=== PATIENT | male | born 1955 | race Caucasian/White ===

== ENCOUNTER → 2016-12-08 16:24 | Outpatient (CLI) | payer BC ==
[2016-09-03 08:15] VITALS: BMI 27.8
[~2016-12-08 16:24] MED LIST: AMBIEN10 MG PO; ASPIRIN325 MG PO; BYSTOLIC10 MG PO; BYSTOLIC20 MG PO; CATAPRES0.1 MG PO; EFFIENT10 MG PO; FISH OIL 1,0001 CA1 PO; GEMFIBROZIL600 MG PO; ISOSORBIDE DINI30 MG PO; K-DUR20 MEQ PO; LIPITOR40 MG PO; NIFEDICAL30 MG/BOTT PO; PLAVIX75 MG PO; PROCARDIA XL PO; ULORIC40 MG PO; VITAMIN D50000 UNIT PO; ZAROXOLYN5 MG PO; ZYLOPRIM100 MG PO
[2016-12-08 17:02] LABS: ANION GAP 10.7 mmol/L (8-16); CALCIUM 9.9 mg/dL (8.5-10.1); CARBON DIOXIDE 34.8 mmol/L (21.0-32.0); CREATININE - SERUM 1.9 mg/dL (0.6-1.3); POTASSIUM - SERUM 3.5 mmol/L (3.5-5.1)
== END | disposition home or self-care (01) ==
LOC: D.LABREF 16:24
PROVIDERS: Internal Medicine Cardiovascular Disease
DX: I10 Essential (primary) hypertension (principal)

== ENCOUNTER → 2017-08-02 13:01 | Outpatient (CLI) | payer BC ==
[2016-09-03 08:15] VITALS: BMI 27.8
== END | disposition home or self-care (01) ==
LOC: D.CT 13:01
DX: I71.4 Abdominal aortic aneurysm, without rupture (principal)

== ENCOUNTER → 2017-08-20 07:39 | Outpatient (CLI) | payer BC ==
[2016-09-03 08:15] VITALS: BMI 27.8
== END | disposition home or self-care (01) ==
LOC: D.RAD 08-11 08:00
DX: Z53.9 Procedure and treatment not carried out, unspecified reason (principal); Z86.010 Personal history of colon polyps

== ENCOUNTER 2018-01-02 20:49 | Emergency (ER) | payer OTHER ==
[2016-09-03 08:15] VITALS: BMI 27.8
[2018-01-02 21:31] LABS: BASOPHILS 0.2 % (0-2); EOSINOPHILS 4.9 % (0-7); HEMATOCRIT 40.1 % (42.0-54.0); HEMOGLOBIN 13.8 g/dL (13.5-17.5); IMMATURE GRANULOCYTES 0.2 % (0-5); MCH 34.8 pg (26.0-34.0); MCHC 34.4 g/dL (31.0-37.0); MCV 101.3 fL (80.0-100.0); MEAN PLATELET VOLUME 9.1 fL (7.4-10.4); MONOCYTES 7.2 % (2-11); NEUTROPHILS 60.5 % (40-80); PLATELET COUNT 286 10x3/uL (130-400); RBC 3.96 10x6/uL (4.20-6.10); RDW 13.2 % (11.5-14.5); WBC 9.2 10x3/uL (4.8-10.8)
[2018-01-02 21:48] LABS: ALBUMIN 3.9 g/dL (3.4-5.0); ALKALINE PHOSPHATASE 108 U/L (46-116); ALT (SGPT) 19 U/L (10-68); BILIRUBIN - TOTAL 0.33 mg/dL (0.2-1.3); CALC OSMOLALITY 279 mosm/kg (275-300); CALCIUM 10.5 mg/dL (8.5-10.1); CHLORIDE - SERUM 96 mmol/L (98-107); GLUCOSE 93 mg/dL (74-106); POTASSIUM - SERUM 3.2 mmol/L (3.5-5.1); PROTEIN - SERUM 8.4 g/dL (6.4-8.2); SODIUM 137 mmol/L (136-145); UREA NITROGEN 29 mg/dL (7-18); eGFR NON AFRICAN AMERICAN 36 mL/min (90-120)
[2018-01-02 22:01] LABS: CHOL - HDL RATIO 5.8 ratio (2.3-4.9); CHOLESTEROL, TOTAL 213 mg/dL (0-200); CKMB 5.2 U/L (0.0-3.6); CREATINE KINASE 581 UL (21-232); HDL CHOLESTEROL 37 mg/dL (32-96); LDL CHOLESTEROL 142 mg/dL (0-100); LDL-HDL RATIO 3.8 ratio (1.5-3.5); PRO BNP 290 pg/mL (0-125); TRIGLYCERIDE 172 mg/dL (30-200); TROPONIN-I < 0.017 ng/mL (0.000-0.060)
== END 2018-01-03 00:02 | disposition home or self-care (01) ==
LOC: D.ER 20:49
PROVIDERS: Family Medicine
DX: R07.89 Other chest pain (principal); E87.6 Hypokalemia; I25.10 Atherosclerotic heart disease of native coronary artery without angina pectoris; I12.9 Hypertensive chronic kidney disease with stage 1 through stage 4 chronic kidney disease, or unspecified chronic kidney disease; N18.9 Chronic kidney disease, unspecified; F17.200 Nicotine dependence, unspecified, uncomplicated; R00.1 Bradycardia, unspecified

== ENCOUNTER 2018-06-23 06:37 | Outpatient (CLI) | payer OTHER ==
[~2018-06-23] VITALS: Ht 165.1 cm; Wt 78.3 kg
--- NOTE | ~2018-06-23 | OP ---
PATIENT NAME: ADELAIDE RICHMOND MEDICAL RECORD: [id number] :53 LOCATION:D.M2 D.2116 ADMISSION DATE:06/23/18 SURGEON: JEANINE RITTER MD DATE OF OPERATION: 06/24/2018 PROCEDURES: 1. PTCA and stent of vein graft to RCA. 2. Selective coronary and vein graft angiography. INDICATION: Angina and coronary artery disease. PROCEDURE IN DETAIL: After informed consent was obtained and after detailed explanation of risks, benefits as well as alternative therapies, the patient elected to proceed with angiogram and angioplasty. The right femoral area was prepped and draped in normal sterile fashion. Right femoral artery was cannulated via modified Seldinger technique with placement of 6-Japanese sheath. All catheters exchanged through this sheath. FINDINGS: The right coronary vein graft has a large clot burden with no discernible flow through the distal vessel. We were able to place a 4.5 x 26-mm Chau stent there. Result was 0% residual stenosis. OVERALL IMPRESSION: Successful PTCA and stent of the vein graft to the right coronary artery going from 85% to 90% initial stenosis to 0% residual stenosis. TRANSINT:[id number] Voice Confirmation ID: [id number] DOCUMENT ID: [id number] JEANINE RITTER MD at 1843 CC: [id number] DICTATION DATE: 06/24/18922 CHILDCARE PROVIDER: 06/24/18 1008 DIS IN 06/24/18 [place] [id number] [place] [id number]
--- NOTE | ~2018-06-23 | DS ---
PATIENT:ADELAIDE RICHMOND :53 MEDICAL RECORD: [id number] DISCHARGE SUMMARY ADMISSION DATE: 06/23/18 DISCHARGE DATE: 06/24/18 DISCHARGE DIAGNOSES: 1. Unstable angina. 2. Coronary artery disease. 3. Percutaneous transluminal coronary angioplasty stent vein graft to right coronary artery this admission. 4. Hyperlipidemia. 5. Hypertension. HISTORY: This is a gentleman who presents with unstable anginal symptomatology, found to have significant disease of the vein graft to the RCA as well as the LAD past the patent JAMES, underwent successful PTCA stent of the vein graft to the RCA. He was discharged home with the addition of aspirin and Plavix to his medical regimen. He will follow up for PTCA stent of the LAD through the JAMES in the near future. TRANSINT:[id number] Voice Confirmation ID: [id number] DOCUMENT ID: [id number] JEANINE RITTER MD at 1843 CC: [id number] DICTATION DATE: 06/24/18923 BLOOD BANK LABORATORY PROFESSIONAL: 06/24/18 1033 DIS IN 06/24/18 [facility] [address] [place] [address]
--- NOTE | ~2018-06-23 | HEMODYNAMI ---
PATIENT:ADELAIDE RICHMOND MEDICAL RECORD: [id number] : 53 LOCATION:DCIARA ADMISSION DATE: 06/23/18 Generatedon:06/23/20189:50 Patient name: ADELAIDE RICHMOND Patient #: [id number] : 1955 Date of study: 06/23/2018 Page: Of Hemodynamic Procedure Report Patient Data Patient Demographics Procedure consent was obtained First Name: ADELAIDE Gender: Male Last Name: YI : 1955 [facility] Initial: IGOR Age: 63 year(s) Patient #: [id number] Race: SSN: [id number] Additional ID: [id number] Contact details Address: [address] [place] [address] [facility] State: [place] City: [place] Zip code: [address] Past Medical History History of disease Date Diagnosis Comments CAD Hypertension Allergies Allergen Reaction Date Comments Reported Other allergy 09/03/2016 prednisone, tramadol Other allergy 06/23/2018 PREDENSONE, TRAMADOL Admission Admission Data Admission Date: 06/23/2018 Admission Time: 6:37 Height (in.): 5.8 BSA: 0.33 (m2) Height (cm.): 14.73 BMI: 3761.96 (kg/m2) Weight (lbs.): 180 Weight (kg.): 81.65 Lab Results Lab Result Date: 06/23/2018 Lab Result Time: 0:00 Biochemistry Name Units Result Min Max BUN mg/dl 32 --(----)-* 7 18 Creatinine mg/dl 2.1 --(----)-* 0.6 1.3 CBC Name Units Result Min Max Hemoglobin g/dl 12.4 *-(----)-- 13.5 17.5 Procedure Procedure Types Cath Procedure Diagnostic Procedure LHC LHC w/Coronaries w/Grafts Sedation Charges Moderate Sedation up to 30 minutes Procedure Description Procedure Date Procedure Date: 06/23/2018 Procedure Start Time: 9:14 Procedure End Time: 9:49 Procedure Staff Name Function Durga Rueda MD Performing Physician Gladis Callahan RT Monitor Jerson Quiles RT Scrub Rafita Tao RN Nurse Darryn Interiano RN Nurse Procedure Data Cath Procedure Fluoroscopy Diagnostic fluoroscopy Total fluoroscopy Time: 5 time: 5 min min Diagnostic fluoroscopy Total fluoroscopy dose: 870 dose: 870 mGy mGy Contrast Material Contrast Material Type Amount (ml) Isovue 300 92 Entry Location Entry Primary Successful Side Size Upsize Upsize Entry Closure Succes sful Closure Location (Fr) 1 (Fr) 2 (Fr) Remarks Device Remarks Femoral Left 5 Fr Exoseal artery Estimated blood loss: 5 ml Diagnostic catheters Device Type Used For End Catheter Placement MULTIPACK JL 4.0 5Fr Procedure catheter DIAGNOSTIC JL 5 5Fr Procedure catheter ([id number]) DIAGNOSTIC AR 2 MOD 5 Fr Procedure catheter ([id number]) DIAGNOSTIC IM 5Fr Procedure catheter ([id number]) MULTIPACK Pigtail 5 Fr Procedure catheter Procedure Complications No complications Procedure Medications Medication Administration Route Dosage Oxygen NC 2 l/min Heparin Flush Bag added to field 2 bags (1000units/500ml NS) 0.9% NaCl I.V. 100 ml/hr Fentanyl I.V. 50 mcg Versed I.V. 1 mg Fentanyl I.V. 50 mcg Versed I.V. 1 mg Hemodynamics Rest BSA: 0.33 (m2) HGB: 12.4 (g/dl) O2 Consumption: Estimated: 36.51 (ml/min) O2 Con sumption indexed: Estimated:110.64 (ml/min/m) Heart Rate: 54 (bpm) Pressure Samples Time Site Value (mmHg) Purpose Heart Use Rate(bpm) 9:31 LV 122/1,9 Snapshot 59 9:32 AO 125/64(89) Pullback 59 9:32 LV 124/2,7 Pullback 59 Gradients Valve Time Site 1 Site 2 Mean SEP/DFP Peak To Heart Use (mmHg) (sec/min) Peak Rate (mmHg) (bpm) Aortic 9:32 LV AO 0 12 0 59 124/2,7 125/64(89) Calculations Valve P-P Mean Valve Index Valve Source Name Gradient Area Flow (cm2) Aortic 0 0 0 0 Snapshots Pre Cath Intra NCS Post Cath Vital Signs Time Heart Resp SPO2 etCO2 NIBP (mmHg) Rhythm Pain Sedation Rate (ipm) (%) (mmHg) Status Level (bpm) 9:03:40 55 17 98 0 Measuring NSR 0 (11) 10(A) , No pain 9:05:42 57 17 94 0 Time NSR 0 (11) 10(A) Exceeded , No pain 9:10:35 58 17 86 0 148/88(122) NSR 0 (11) 10(A) , No pain 9:15:20 57 17 90 36.1 146/85(111) NSR 0 (11) 10(A) , No pain 9:20:05 55 16 95 0 146/86(113) NSR 0 (11) 10(A) , No pain 9:24:47 56 17 94 28.6 140/83(112) NSR 0 (11) 10(A) , No pain 9:29:28 57 17 94 19.5 131/79(103) NSR 0 (11) 10(A) , No pain 9:34:09 57 17 96 18 137/82(112) NSR 0 (11) 10(A) , No pain 9:38:54 54 16 96 12.8 141/79(105) NSR 0 (11) 10(A) , No pain 9:43:36 68 17 95 28.6 142/92(115) NSR 0 (11) 10(A) , No pain 9:48:17 57 16 96 24.8 130/81(101) NSR 0 (11) 10(A) , No pain Medications Time Medication Route Dose Verified Delivered Reason Notes Effect iveness by by 9:07:35 Oxygen NC 2 Durga Rafita Per l/min Mohit Tao RN physician 9:07:47 Heparin Flush added 2 Durag Rafita used for Bag to bags Mohit Tao cotton farmer (1000units/500ml field NS) 9:07:56 0.9% NaCl I.V. 100 Durga Rafita Per ml/hr Mohit Tao RN physician 9:12:28 Fentanyl I.V. 50 Durga Rafita for [facility] Mohit Tao RN sedation 9:12:34 Versed I.V. 1 mg Durga Rafita for Mohit Tao RN sedation 9:17:59 Fentanyl I.V. 50 Durga Rafita for [facility] Mohit Tao RN sedation 9:18:02 Versed I.V. 1 mg Durga Eller for Mohit Tao RN sedation Procedure Log Time Note 8:44:02 Jerson Quiles RT(R) sent for patient. Start room use. 8:44:03 Time tracking: Regular hours (M-F 7:00 - 5:00) 8:44:06 Plan of Care:Hemodynamics will remain stable., Cardiac rhythm will remain stable., Comfort level will be maintained., Respiratory function will remain adequate., Patient/ family verbilizes understanding of procedure., Procedure tolerated without complication., Recovers from procedure without complications.. 8:44:09 Signed procedure consent form obtained from patient. 8:45:21 H&P Date Dictated: 05/26/2018 Within 30 days and on chart., H&P Addendum completed by physician on day of procedure. (MUST COMPLETE FOR ALL OUTPATIENTS). 8:45:44 Patient allergic to Other allergyPREDENSONE, TRAMADOL 8:46:02 Patient Height : 5.8 inches 8:46:06 Patient Weight : 180 lbs 8:46:53 Lab Result : BUN 32 mg/dl 8:46:53 Lab Result : Hemoglobin 12.4 g/dl 8:46:53 Lab Result : Creatinine 2.1 mg/dl 8:54:03 Patient received from Pre/Post Procedure Room to CCL 1 Alert and oriented. Tansferred to table in Supine position. 8:54:06 Warm blankets applied, and christine hugger turned on for patient comfort. 8:54:07 Correct patient and procedure confirmed by team. 8:54:08 ECG and BP/O2 sat monitors applied to patient. 9:02:31 Vital chart was started 9:02:35 Pre-procedure instructions explained to patient. 9:02:35 Pre-op teaching completed and patient verbalized understanding. 9:02:37 Family in patients room. 9:02:39 Patient NPO since Midnight. 9:06:37 Baseline sample Acquired. 9:06:40 Rhythm: sinus bradycardia 9:06:41 Full Disclosure recording started 9:06:44 Is the patient allergic to Iodine/contrast media? No. 9:06:49 Is patient on blood thinner?No 9:07:02 Patient diabetic? No. 9:07:05 Previous problem with sedation/anesthesia? No ? 9:07:06 Snore? Yes 9:07:07 Sleep apnea? Yes 9:07:08 Deviated septum? No 9:07:09 Opens mouth fully? Yes 9:07:10 Sticks out tongue? Yes 9:07:13 Airway obstruction? Yes COPD 9:07:22 Dentures? Yes IN TIGHT 9:07:26 Pre procedure: left dorsailis pedis pulse 2+ Normal; easily identifiable; not easily obliterated 9:07:30 Patient pain scale 0/10 ?. 9:07:34 IV patent on arrival in left hand with 0.9% NaCl at KVO. 9:07:35 Oxygen 2 l/min NC was administered by Rafita Tao RN; Per physician; 9:07:36 Lab results completed and on chart. 9:07:39 Left groin area was prepped with chlora-prep and draped in sterile fashion 9:07:40 Alarms reviewed by R. N. 9:07:40 Sharps counted by scrub and verified by R.N. 9:07:41 --------ALL STOP TIME OUT------ 9:07:42 Final Timeout: patient, procedure, and site verified with staff and physician. All members of the team are in agreement. 9:07:43 Left groin site verified by team. 9:07:46 Physical assessment completed. ASA score P 2 - A patient with mild systemic disease as per Durga Rueda MD. 9:07:47 Heparin Flush Bag (1000units/500ml NS) 2 bags added to field was administered by Rafita Tao RN; used for procedure; 9:07:50 Sedation plan: IV Moderate Sedation Medication:Versed, Fentanyl 9:07:56 0.9% NaCl 100 ml/hr I.V. was administered by Rafita Tao RN; Per physician; 9:11:19 Use device set Femoral Dx 9:11:21 ACIST Syringe (35125) opened to sterile field. 9:11:22 Bag Decanter () opened to sterile field. 9:11:23 ACIST Hand Control (73598) opened to sterile field. 9:11:24 ACIST Manifold (62467) opened to sterile field. 9:11:24 Tegaderm 4 x 4 (1626W) opened to sterile field. 9:11:26 Medline Cath Pack ([id number]) opened to sterile field. 9:11:27 DIAGNOSTIC WIRE .035 260cm J wire (473058) opened to sterile field. 9:11:29 DIAGNOSTIC Multipack 5Fr catheter set ([id number]) opened to sterile field. 9:11:30 SHEATH Prelude 5Fr 0.035 ([id number]-7F-00-035) opened to sterile field. 9:11:58 Zero performed for pressure channel P1 9:12:28 Fentanyl 50 mcg I.V. was administered by Rafita Tao RN; for sedation; 9:12:34 Versed 1 mg I.V. was administered by Rafita Tao RN; for sedation; 9:14:07 Procedure started. 9:14:14 Local anesthetic to left femerol artery with Lidocaine 2% by Durga Rueda MD.INITIAL ACCESS ONLY 9:14:41 Zero performed for pressure channel P1 9:17:59 Fentanyl 50 mcg I.V. was administered by Rafita Tao RN; for sedation; 9:18:02 Versed 1 mg I.V. was administered by Rafita Tao RN; for sedation; 9:18:02 A 5 Fr sheath was inserted into the Left Femoral artery 9:19:33 A MULTIPACK JL 4.0 5Fr catheter was advanced over the wire and used for Procedure. 9:22:14 UNABLE TO CANNULATE 9:22:23 A DIAGNOSTIC JL 5 5Fr catheter ([id number]) was advanced over the wire and used for Procedure. 9:23:53 LCA angiography performed. 9:24:15 Catheter exchanged over wire. 9:24:48 A DIAGNOSTIC AR 2 MOD 5 Fr catheter ([id number]) was advanced over the wire and used for Procedure. 9:26:35 SVG to RCA angiography performed. 9:27:28 SVG to Diag angiography performed. 9:27:52 Catheter exchanged over wire. 9:28:32 A DIAGNOSTIC IM 5Fr catheter (950360V) was advanced over the wire and used for Procedure. 9:30:24 JAMES to LAD angiography performed. 9:30:35 Catheter exchanged over wire. 9:31:07 A MULTIPACK Pigtail 5 Fr catheter was advanced over the wire and used for Procedure. 9:31:37 LV gram done using [place] 9:31:42 Injector settings: Ml/sec: 10, Volume: 20, 9:32:03 LV hemodynamics recorded. 9:32:19 EF : 60 % 9:43:06 Catheter removed. 9:43:09 EXOSEAL 5Fr (EX500) opened to sterile field. 9:44:01 Sheath removed intact; hemostasis achieved with Exoseal to the Left Femoral artery. 9:45:07 Procedure ended.(Physican Out) 9:45:39 Fluoroscopy time 05.00 minutes. 9:46:18 Fluoroscopy dose: 870 mGy 9:46:18 Flurop Dose total: 870 9:47:09 Contrast amount:Isovue 300 92ml. 9:47:11 Sharps counted by scrub and verified by R.N. 9:47:14 Post-op/insertion site Left Femoral artery dressed using a 4 x 4 and Tegaderm. 9:47:19 Post left femerol artery:stable, soft, clean and dry 9:47:23 Post-procedure physical assessment completed. ASA score P 2 - A patient with mild systemic disease as per Durga Rueda MD. 9:47:28 Post procedure rhythm: sinus bradycardia 9:47:54 Estimated blood loss: 5 ml 9:47:58 Post procedure instruction explained to patient.Patient verbalizes understanding. 9:47:59 Patient needs reinforcement of post procedure teaching. 9:48:22 Procedure type changed to Cath procedure, Diagnostic procedure, LHC, LHC w/Coronaries w/Grafts, Sedation Charges, Moderate Sedation up to 30 minutes 9:49:06 Procedure and supply charges have been captured, reviewed, submitted and are correct. 9:49:08 Procedure Complication : No complications 9:49:10 Vital chart was stopped 9:49:10 See physician's report for complete and final results. 9:49:12 Report given to Pre/Post Procedure Room. 9:49:15 Patient transfered to Pre/Post Procedure Room with Bed. 9:49:16 Procedure ended. 9:49:16 Full Disclosure recording stopped 9:49:19 End room use (Document Last) Device Usage Item Name Manufacture Quantity Catalog Number Hospital Part Current M inimal Lot# / Charge Number Stock Stock Serial# Code ACIST Syringe Acist 1 01518 714967 615989 709916 2 0 (74951) [employer] Bag Decanter Microtek 1 069302 24936 574068 5 (2002S) Medical Inc. ACIST Hand Acist 1 57588 073934 857093 696944 5 Control (64262) [employer] Inc ACIST Manifold Acist 1 74148 258157 228794 146673 5 (98070) [employer] Inc Tegaderm 4 x 4 3M 1 1626W 354932 754508 950849 5 (1626W) Medline Cath Cardinal 1 [id number] 854769 16647 961286 5 Invested.in Health ([id number]) DIAGNOSTIC WIRE [facility] 1 778715 192050 004549 435566 3 0 .035 260cm J wire (240046) DIAGNOSTIC Cardinal 1 [id number] 168830 24994 415954 3 0 Multipack 5Fr Health catheter set (ON7195) SHEATH Prelude Merit 1 [id number]-[id number] 585228 263390 980657 5 5Fr 0.035 Medical ([id number]-5M-97-035) MULTIPACK JL Cardinal 1 [id number] 5 4.0 5Fr Health catheter DIAGNOSTIC JL 5 Cardinal 1 [id number] 330067 982983 501973 5 5Fr catheter Health (239545G) DIAGNOSTIC AR 2 Cardinal 1 [id number] 995681 703678 496007 2 0 MOD 5 Fr Health catheter ([id number]) DIAGNOSTIC IM Cardinal 1 [id number] 017669 070929 425525 5 5Fr catheter Health (260990J) MULTIPACK Cardinal 1 004116 5 Pigtail 5 Fr Health catheter EXOSEAL 5Fr Cardinal 1 EX500 593942 751721 428749 1 0 (EX500) Health Signature Audit [place] Stage Time Signature Unsigned Intra-Procedure 06/23/2018 Gladis Callahan 9:50:27 AM RT(R) Signatures Monitor : Gladis Callahan Signature : RT Date : Time : [facility] [address] [facility] [place] [address]
--- NOTE | ~2018-06-23 | HEMODYNAMI ---
PATIENT:ADELAIDE RICHMOND MEDICAL RECORD: [id number] : 53 LOCATION:[facility] D.2116 ADMISSION DATE: 06/23/18 Generatedon:06/24/20189:24 Patient name: ADELAIDE RICHMOND Patient #: [id number] : 1955 Date of study: 06/24/2018 Page: Of Hemodynamic Procedure Report Patient Data Patient Demographics Procedure consent was obtained First Name: ADELAIDE Gender: Male Last Name: YI : 1955 [facility] Initial: IGOR Age: 63 year(s) Patient #: [id number] Race: SSN: [id number] Additional ID: [id number] Contact details Address: [address] [place] [address] [facility] State: [place] City: [place] Zip code: [facility] Past Medical History History of disease Date Diagnosis Comments CAD Hypertension Allergies Allergen Reaction Date Comments Reported Other allergy 09/03/2016 prednisone, tramadol Other allergy 06/23/2018 PREDENSONE, TRAMADOL Other allergy 06/24/2018 TRAMADOL, PREDENISONE Admission Admission Data Admission Date: 06/23/2018 Admission Time: 12:19 Room #: [facility] Height (in.): 5.8 BSA: 0.33 (m2) Height (cm.): 14.73 BMI: 3761.96 (kg/m2) Weight (lbs.): 180 Weight (kg.): 81.65 Lab Results Lab Result Date: 06/23/2018 Lab Result Time: 0:00 Biochemistry Name Units Result Min Max BUN mg/dl 32 --(----)-* 7 18 Creatinine mg/dl 2.1 --(----)-* 0.6 1.3 CBC Name Units Result Min Max Hemoglobin g/dl 12.4 *-(----)-- 13.5 17.5 Procedure Procedure Types Cath Procedure Diagnostic Procedure PCI Procedure AMI/SVG/CORPORATE TAX PREPARER PTCA or Stent SVG-BMS/ELBA Initial Procedure Description Procedure Date Procedure Date: 06/24/2018 Procedure Start Time: 9:04 Procedure End Time: 9:21 Procedure Staff Name Function Art Wilkins MD Performing Physician Liat Diehl RT Monitor Sowmya Mcdermott RT Scrub Darryn Interiano RN Nurse Rafita Tao RN Nurse Jerson Quiles RT Spring Tester Procedure Data Cath Procedure Fluoroscopy Diagnostic fluoroscopy Total fluoroscopy Time: 5.2 time: 5.2 min min Diagnostic fluoroscopy Total fluoroscopy dose: 404 dose: 404 mGy mGy Contrast Material Contrast Material Type Amount (ml) Isovue 300 49 Entry Location Entry Primary Successful Side Size Upsize Upsize Entry Closure Succes sful Closure Location (Fr) 1 (Fr) 2 (Fr) Remarks Device Remarks Femoral Right 6 Fr Exoseal artery Short Estimated blood loss: 10 ml Procedure Complications No complications Procedure Medications Medication Administration Route Dosage Oxygen etCO2 Nasal cannula 2 l/min Lidocaine 2% added to field 20 Heparin Flush Bag added to field 2 bags (1000units/500ml NS) 0.9% NaCl I.V. 100 ml/hr Integrilin Drip I.V. drip 6.5 ml/hr (75mg/100ml) Versed I.V. 1 mg Fentanyl I.V. 100 mcg Versed I.V. 1 mg Fentanyl I.V. 50 mcg Heparin Bolus I.V. 5000 units Cardene I.C. 300 mcg Fentanyl I.V. 50 mcg Plavix P.O. 75 mg Hemodynamics Rest BSA: 0.33 (m2) O2 Consumption: Estimated: 44.88 (ml/min) O2 Consumption indexed: Estimated:136 (ml/min/m) Pre Cath Intra NCS Post Cath Vital Signs Time Heart Resp SPO2 etCO2 NIBP (mmHg) Rhythm Pain Sedation Rate (ipm) (%) (mmHg) Status Level (bpm) 8:50:43 51 14 97 36 188/100(159) NSR 0 (11) 10(A) , No pain 8:55:03 50 10 96 29.2 175/104(148) NSR 0 (11) 10(A) , No pain 8:59:21 52 17 94 37.5 164/95(138) NSR 0 (11) 10(A) , No pain 9:03:37 51 17 94 32.3 151/91(106) NSR 0 (11) 10(A) , No pain 9:07:49 53 21 94 30.8 148/90(107) NSR 0 (11) 9(A) , No pain 9:12:01 53 13 93 33 132/86(106) NSR 0 (11) 9(A) , No pain 9:16:09 53 14 94 26.3 138/77(107) NSR 0 (11) 9(A) , No pain 9:20:15 53 13 93 29.2 133/92(106) NSR 0 (11) 10(A) , No pain Medications Time Medication Route Dose Verified Delivered Reason Notes Effectiveness by by 8:49:55 Oxygen etCO2 2 Art Cates used for Nasal l/min Claudette Interiano RN procedure cannula 8:50:01 Lidocaine 2% added 20ml Art Cordova for local to vial Claudette Wilkins MD anesthetic field 8:50:07 Heparin Flush added 2 Art Cordova used for Bag to bags Claudette Wilkins MD procedure (1000units/500ml field NS) 8:50:15 0.9% NaCl I.V. 100 Art Cates Per physician ml/hr Claudette Interiano RN 8:53:00 Integrilin Drip I.V. 6.5 Art Cates renal dose (75mg/100ml) drip ml/hr Claudette Interiano RN 9:04:00 Versed I.V. 1 mg Art Cates for sedation Claudette Interiano RN 9:04:05 Fentanyl I.V. 100 Art Cates for sedation mcg Claudette Interiano RN 9:05:07 Versed I.V. 1 mg Art Cates for sedation Claudette Interiano RN 9:05:10 Fentanyl I.V. 50 Art Cates for sedation mcg Claudette Interiano RN 9:05:41 Heparin Bolus I.V. 5000 Art Cates for verifi ed units Claudette Interiano RN anticoagulation with dr wilkins 9:12:49 Cardene I.C. 300 Art Cordova for mcg Claudette durant 9:15:56 Fentanyl I.V. 50 Art Cordoav for sedation mcg Claudette Wilkins MD 9:22:32 Plavix P.O. 75 mg Art Cates for Tauth MD Interiano RN antiplatelet therapy Procedure Log Time Note 8:24:42 Patient Height : 5.8 inches 8:24:42 Patient Weight : 180 lbs 8:25:01 Jerson Quiles RT(R) sent for patient. Start room use. 8:25:02 Time tracking: Regular hours (M-F 7:00 - 5:00) 8:25:07 Plan of Care:Hemodynamics will remain stable., Cardiac rhythm will remain stable., Comfort level will be maintained., Respiratory function will remain adequate., Patient/ family verbilizes understanding of procedure., Procedure tolerated without complication., Recovers from procedure without complications.. 8:44:25 Patient received from Med II to CCL 2 Alert and oriented. Tansferred to table in Supine position. 8:44:26 Warm blankets applied, and christine hugger turned on for patient comfort. 8:44:26 Correct patient and procedure confirmed by team. 8:44:37 Signed procedure consent form obtained from patient. 8:44:38 ECG and BP/O2 sat monitors applied to patient. 8:45:47 Full Disclosure recording started 8:46:30 H&P Date Dictated: 06/23/2018 Within 30 days and on chart.. 8:46:31 Pre-procedure instructions explained to patient. 8:46:32 Pre-op teaching completed and patient verbalized understanding. 8:46:33 Family in patients room. 8:46:34 Patient NPO since Midnight. 8:46:56 Patient allergic to Other allergyTRAMADOL, PREDENISONE 8:46:58 Is the patient allergic to Iodine/contrast media? No. 8:47:10 Is patient on blood thinner?Yes 8:47:13 ACC The patient was administered the following blood thiners within the last 24 hours: ACCPlavix 8:47:23 Patient diabetic? No. 8:47:27 Previous problem with sedation/anesthesia? No ? 8:47:28 Snore? Yes 8:47:29 Sleep apnea? Yes 8:47:31 Deviated septum? No 8:47:35 Opens mouth fully? Yes 8:47:35 Sticks out tongue? Yes 8:47:39 Airway obstruction? Yes COPD 8:47:44 Dentures? Yes IN TIGHT 8:47:57 Pre procedure: left dorsailis pedis pulse 2+ Normal; easily identifiable; not easily obliterated 8:48:01 Patient pain scale 0/10 ?. 8:48:10 IV patent on arrival in left hand with 0.9% NaCl at KVO. 8:48:37 Lab results completed and on chart. 8:48:40 Left groin area was prepped with chlora-prep and draped in sterile fashion 8:48:42 Alarms reviewed by R. N. 8:48:43 Sharps counted by scrub and verified by R.N. 8:49:26 Use device set CATH PACK 8:49:27 ACIST Syringe (16137) opened to sterile field. 8:49:28 ACIST Hand Control (14242) opened to sterile field. 8:49:28 ACIST Manifold (06432) opened to sterile field. 8:49:29 Medline Cath Pack ([id number]) opened to sterile field. 8:49:29 Bag Decanter (2002) opened to sterile field. 8:49:30 DIAGNOSTIC WIRE .035 260cm J wire (675365) opened to sterile field. 8:49:35 Vital chart was started 8:49:55 Oxygen 2 l/min etCO2 Nasal cannula was administered by Darryn Interiano RN; used for procedure; 8:50:01 Lidocaine 2% 20ml vial added to field was administered by Art Wilkins MD; for local anesthetic; 8:50:07 Heparin Flush Bag (1000units/500ml NS) 2 bags added to field was administered by Art Wilkins MD; used for procedure; 8:50:15 0.9% NaCl 100 ml/hr I.V. was administered by Darryn Interiano RN; Per physician; 8:50:26 SHEATH 6FR [place] (PCR780) opened to sterile field. 8:50:27 INFLATOR Merit BasixCompak (MV4643) opened to sterile field. 8:53:00 Integrilin Drip (75mg/100ml) 6.5 ml/hr I.V. drip was administered by Darryn Interiano RN; renal dose; 8:54:31 Physician paged 8:58:30 Zero performed for pressure channel P1 9:03:29 Physician arrived 9:03:30 --------ALL STOP TIME OUT------ 9:03:30 Final Timeout: patient, procedure, and site verified with staff and physician. All members of the team are in agreement. 9:03:32 Left groin site verified by team. 9:03:43 Physical assessment completed. ASA score P 2 - A patient with mild systemic disease as per Art Wilkins MD. 9:03:47 Sedation plan: IV Moderate Sedation Medication:Versed, Fentanyl 9:03:59 Use device set Femoral Dx 9:04:00 Versed 1 mg I.V. was administered by Darryn Interiano RN; for sedation; 9:04:04 Procedure started. 9:04:05 Fentanyl 100 mcg I.V. was administered by Darryn Interiano RN; for sedation; 9:04:33 INFLATOR Merit BasixCompak (JG3061) opened to sterile field. 9:04:34 ACIST Syringe (04144) opened to sterile field. 9:04:34 Bag Decanter (2002S) opened to sterile field. 9:04:35 Medline Cath Pack ([id number]) opened to sterile field. 9:04:37 DIAGNOSTIC WIRE .035 260cm J wire (444736) opened to sterile field. 9:04:38 ACIST Hand Control (19016) opened to sterile field. 9:04:38 ACIST Manifold (26843) opened to sterile field. 9:04:41 Tegaderm 4 x 4 (1626W) opened to sterile field. 9:04:46 Local anesthetic to left femerol artery with Lidocaine 2% by Art Wilkins MD.INITIAL ACCESS ONLY 9:04:58 A 6 Fr Short sheath was inserted into the Right Femoral artery 9:05:07 Versed 1 mg I.V. was administered by Darryn Interiano RN; for sedation; 9:05:10 Fentanyl 50 mcg I.V. was administered by Darryn Interiano RN; for sedation; 9:05:41 Heparin Bolus 5000 units I.V. was administered by Darryn Interiano RN; for anticoagulation; verified with dr wilkins 9:06:05 GUIDE 6FR MB 1 catheter (LA6MB1) opened to sterile field. 9:06:06 CHOICE PT Floppy Straight 300cm guide wire ([id number]) opened to sterile field. 9:06:21 6 Fr MB1 guide catheter was inserted over the wire 9:09:38 Wire advanced across lesion. 9:12:49 Cardene 300 mcg I.C. was administered by Art Wilkins MD; for vasodilation; 9:13:23 Place stent Inflation Number: 1 A STAR RX 4.5 x 26 stent ([id number]) was prepped and advanced across the Aorta Right -> R PDA. The stent was deployed at 11 TIGIST for 0:05 (min:sec). 9:13:59 Stent catheter was removed intact over wire. 9:15:45 Wire removed. 9:15:56 Fentanyl 50 mcg I.V. was administered by Art Wilkins MD; for sedation; 9:18:09 Inflate balloon Inflation number: 2 A EMERGE OTW 2.5 x 15 balloon ([id number]) was prepped and advanced across the Aorta Right -> R PDA, then inflated to 11 TIGIST for 0:08 (min:sec). 9:18:21 EXOSEAL 6Fr (EX600) opened to sterile field. 9:18:25 Balloon removed over the wire. 9:18:26 Wire removed. 9:18:27 Guide catheter removed. 9:19:07 Sheath removed intact; hemostasis achieved with Exoseal to the Right Femoral artery. 9:19:12 Procedure ended.(Physican Out) 9:19:25 Fluoroscopy time 05.20 minutes. 9:19:31 Flurop Dose total: 404 9:19:31 Fluoroscopy dose: 404 mGy 9:19:51 Contrast amount:Isovue 300 49ml. 9:19:53 Sharps counted by scrub and verified by R.N. 9:19:55 Insertion/operative site no bleeding no hematoma. 9:20:04 Post left femerol artery:stable 9:20:13 Post Procedure Pulses reassessed and unchanged 9:20:16 Post-procedure physical assessment completed. ASA score P 2 - A patient with mild systemic disease as per Art Wilkins MD. 9:20:19 Post procedure rhythm: unchanged. 9:20:21 Estimated blood loss: 10 ml 9:20:23 Post procedure instruction explained to patient.Patient verbalizes understanding. 9:20:46 Procedure type changed to Cath procedure, Diagnostic procedure, PCI procedure, AMI/SVG/CORPORATE TAX PREPARER PTCA or Stent, SVG-BMS/ELBA Initial 9:20:48 Procedure and supply charges have been captured, reviewed, submitted and are correct. 9:21:37 Procedure Complication : No complications 9:21:40 Vital chart was stopped 9:21:41 See physician's report for complete and final results. 9:21:42 Report given to Pre/Post Procedure Room. 9:21:46 Patient transfered to Pre/Post Procedure Room with Stretcher. 9:21:48 Procedure ended. 9:21:48 Full Disclosure recording stopped 9:21:52 End room use (Document Last) 9:22:32 Plavix 75 mg P.O. was administered by Darryn Interiano RN; for antiplatelet therapy; 9:23:56 ACC-PCI Only Patient was given prescriptions, or instructed by Art Wilkins MD to start/continue the following medications upon discharge: Plavix Intervention Summary Intervention Notes Time ActionType Lesion and Equipment Used Action# Pressure Duration Attributes 9:13:23 Place stent Aorta Right STAR RX 4.5 x 1 11 00:05 -> R PDA 26 stent ([id number]) 9:18:09 Inflate Aorta Right EMERGE OTW 2.5 2 11 00:08 balloon -> R PDA x 15 balloon ([id number]) Device Usage Item Name Manufacture Quantity Catalog Number Hospital Part Current Minimal Lot# / Charge Number Stock Stock Serial# Code ACIST Syringe Acist 2 74044 015889 650587 407126 20 (87779) Medical Systems Inc ACIST Hand Acist 2 12056 312809 810207 828869 5 Control Medical (62608) Systems Inc ACIST Manifold Acist 2 78211 381092 722056 726569 5 (55265) Medical Systems Inc Medline Cath Cardinal 2 [id number] 455505 93050 474066 5 [facility] ([id number]) Bag Decanter Microtek 2 2001S 394570 50049 140827 5 (2001S) Medical Inc. DIAGNOSTIC [place] 2 859744 372287 233204 890266 30 WIRE .035 260cm J wire (156808) SHEATH 6FR Terumo 1 DIW001 284362 654362 724827 40 [place] (QRL074) INFLATOR Merit Merit 2 SH0412 048639 596446 852289 [facility] ([id number]) Tegaderm 4 x 4 3M 1 1626W 694817 457992 989394 5 (1626W) GUIDE 6FR MB 1 Medtronic 1 LA6MB1 170286 70774 053945 1 catheter (LA6MB1) CHOICE PT [place] 1 [id number] 230549 757888 984419 5 Language [employer]istics Straight 300cm guide wire ([id number]) STAR RX 4.5 x Medtronic 1 [id number] 852278 2014103 093081 5 [id number] 26 stent ([id number]) EMERGE OTW 2.5 [place] 1 [id number] 381530 456293 854890 5 [id number] x 15 balloon Scientific ([id number]) EXOSEAL 6Fr Cardinal 1 EX600 328796 291684 229469 10 (EX600) Health Signature Audit Chama Stage Time Signature Unsigned Intra-Procedure 06/24/2018 Liat Diehl 9:24:12 AM RT(R) Signatures Monitor : Liat Diehl Signature : RT Date : Time : [id number] [place] [address]
[2018-06-23] MEDS ORDERED: VITAMIN D250000 UNIT PO (07:01)
[2018-06-23] MEDS ORDERED: FEXOFENADINE HC60 MG PO (07:02)
[2018-06-23] MEDS ORDERED: AMBIEN5 MG PO (07:02)
[2018-06-23] MEDS ORDERED: GEMFIBROZIL600 MG PO (07:03)
[2018-06-23] MEDS ORDERED: NIFEDIPINE ER60 MG PO (07:04)
[2018-06-23] MEDS ORDERED: PROTONIX40 MG PO (07:04)
[2018-06-23] MEDS ORDERED: SYMBICORT 16010.2 GM INH (07:05)
[2018-06-23 07:15] VITALS: BP 158/82; BMI 30.5
[2018-06-23 07:18] LABS: BASOPHILS 0.2 % (0-2); EOSINOPHILS 5.1 % (0-7); HEMATOCRIT 35.4 % (42.0-54.0); HEMOGLOBIN 12.4 g/dL (13.5-17.5); IMMATURE GRANULOCYTES 0.3 % (0-5); LYMPHOCYTES 19.4 % (15-50); MCH 34.5 pg (26.0-34.0); MCV 98.6 fL (80.0-100.0); MEAN PLATELET VOLUME 9.1 fL (7.4-10.4); MONOCYTES 6.1 % (2-11); NEUTROPHILS 68.9 % (40-80); PLATELET COUNT 310 10x3/uL (130-400); RBC 3.59 10x6/uL (4.20-6.10); RDW 12.9 % (11.5-14.5); WBC 9.3 10x3/uL (4.8-10.8)
[2018-06-23 07:26] LABS: ANION GAP 12.5 mmol/L (8-16); CALCIUM 9.5 mg/dL (8.5-10.1); CARBON DIOXIDE 29.2 mmol/L (21.0-32.0); CREATININE - SERUM 2.1 mg/dL (0.6-1.3); POTASSIUM - SERUM 3.7 mmol/L (3.5-5.1)
[2018-06-23 15:40] VITALS: BP 142/76; Ht 165.1 cm; Wt 78.3 kg
[2018-06-23 20:40] VITALS: BP 128/74
[2018-06-24 00:05] VITALS: BP 142/81
[2018-06-24 04:52] VITALS: BP 162/94
[2018-06-24 07:05] LABS: ANION GAP 10.7 mmol/L (8-16); CALCIUM 8.8 mg/dL (8.5-10.1); CARBON DIOXIDE 31.5 mmol/L (21.0-32.0); POTASSIUM - SERUM 3.2 mmol/L (3.5-5.1)
[2018-06-24 08:13] VITALS: BP 139/85
[2018-06-24 12:46] VITALS: BP 142/81
== END 2018-06-24 15:27 | disposition home or self-care (01) ==
LOC: OBSVTIME → D.CATH 06:37 → D.M2 12:19 → D.CATH 12:19 → OBSVTIME 12:19 → D.M2 12:19 → D.CATH 06-24 15:27 → D.M2 06-24 15:27
PROVIDERS: Internal Medicine Cardiovascular Disease
DX: I25.110 Atherosclerotic heart disease of native coronary artery with unstable angina pectoris (principal); Z95.1 Presence of aortocoronary bypass graft; E78.5 Hyperlipidemia, unspecified; I10 Essential (primary) hypertension

== ENCOUNTER 2018-11-05 16:36 | Observation (INO) | payer OTHER ==
[~2018-11-05] VITALS: Ht 165.1 cm; Wt 83.2 kg
--- NOTE | ~2018-11-05 | OP ---
PATIENT NAME: ADELAIDE RICHMOND MEDICAL RECORD: [id number] :53 LOCATION:D.M2 D.2 ADMISSION DATE:11/05/18 SURGEON: JIM OLEA MD DATE OF OPERATION: 11/06/2018 PROCEDURES: Left heart catheterization, selective coronary angiography, aortogram, JAMES injection, saphenous graft, right femoral artery approach. CATHETERS: A 5-Setswana sheath, 5/4 left and right Pedro, 5/4 pig. The procedure was well tolerated. The patient was returned to [facility]. Sheath was removed. ExoSeal device was placed. FINDINGS: Left ventriculography in 30-degree [place] view; normal wall motion and normal systolic function. AORTIC ROOT: Aortogram was performed. Locatin of bypass graft: This shows saphenous vein graft to the diagonal ramus system filling. CORONARY ANATOMY: LEFT MAIN: Left main is diffusely diseased, fills with a LAD for a short period of time, seen via competitive flow. CIRCUMFLEX: Circumflex fills for a period of time and is proximally occluded. RIGHT CORONARY: Proximally occluded, fills via left to right collaterals to the JAMES graft. Saphenous vein graft to the right is totally occluded at its origin. JAMES to LAD is widely patent at the apex and note of Dr. Rueda's previous angiography report showed severe distal disease at the apex, not amenable to transcatheter ablation. Saphenous vein graft to the diagonal ramus system shows diffuse disease after the anastomotic site. IMPRESSION: Severe distal disease, not amenable to percutaneous intervention; for medical management. 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
--- NOTE | ~2018-11-05 | HEMODYNAMI ---
PATIENT:ADELAIDE RICHMOND MEDICAL RECORD: [id number] : 53 [id number] ADMISSION DATE: 11/05/18 Generatedon:11/06/201812:34 Patient name: ADELAIDE RICHMOND Patient #: [id number] : 1955 Date of study: 11/06/2018 Page: Of Hemodynamic Procedure Report Patient Data Patient Demographics Procedure consent was obtained First Name: ADELAIDE Gender: Male Last Name: YI : 1955 [facility] Initial: IGOR Age: 63 year(s) Patient #: [id number] Race: SSN: [id number] Additional ID: [id number] Contact details [address]: [address] [place] [address] [facility] State: [place] City: [place] Zip code: [address] Past Medical History History of disease Date Diagnosis Comments CAD Hypertension Allergies Allergen Reaction Date Comments Reported Other allergy 09/03/2016 prednisone, tramadol Other allergy 06/23/2018 PREDENSONE, TRAMADOL Other allergy 06/24/2018 TRAMADOL, PREDENISONE Other allergy 11/06/2018 prednisone, tramadol, hcl Admission Admission Data Admission Date: 11/05/2018 Admission Time: 17:36 Admit Source: Emergency department Room #: D.2122 Lab Results Lab Result Date: 11/05/2018 Lab Result Time: 17:00 Biochemistry Name Units Result Min Max BUN mg/dl 23 --(----)-* 7 18 Creatinine mg/dl 1.7 --(----)-* 0.6 1.3 CBC Name Units Result Min Max Hematocrit % 32.7 *-(----)-- 42 54 Hemoglobin g/dl 10.8 *-(----)-- 13.5 17.5 Procedure Procedure Types Cath Procedure Diagnostic Procedure LHC LHC w/Coronaries w/Grafts Sedation Charges Moderate Sedation up to 15 minutes Procedure Description Procedure Date Procedure Date: 11/06/2018 Procedure Start Time: 12:17 Procedure End Time: 12:34 Procedure Staff Name Function Leo Rooney MD Performing Physician Jennifer Short RT Monitor Jonathan Posadas RT Scrub Gene Abraham RN Nurse Procedure Data Cath Procedure Fluoroscopy Diagnostic fluoroscopy Total fluoroscopy Time: 5 time: 5 min min Diagnostic fluoroscopy Total fluoroscopy dose: 754 dose: 754 mGy mGy Contrast Material Contrast Material Type Amount (ml) Isovue 300 133 Entry Location Entry Primary Successful Side Size Upsize Upsize Entry Closure Succes sful Closure Location (Fr) 1 (Fr) 2 (Fr) Remarks Device Remarks Femoral Right 5 Fr Exoseal artery Estimated blood loss: 5 ml Diagnostic catheters Device Type Used For End Catheter Placement MULTIPACK JL 4.0 5Fr Left Coronary catheter Angiography DIAGNOSTIC JL 5 5Fr Left Coronary catheter ([id number]) Angiography MULTIPACK Pigtail 5 Fr LV Angiography catheter MULTIPACK Pigtail 5 Fr Aortic Root catheter Angiography MULTIPACK 3DRC 5Fr Right Coronary catheter Angiography MULTIPACK 3DRC 5Fr SVG Angiography catheter MULTIPACK 3DRC 5Fr SVG Angiography catheter MULTIPACK 3DRC 5Fr Internal mammary catheter arteriography Procedure Complications No complications Procedure Medications Medication Administration Route Dosage 0.9% NaCl I.V. 100 ml/hr Oxygen etCO2 Nasal cannula 2 l/min Heparin Flush Bag added to field 2 bags (1000units/500ml NS) Lidocaine 2% added to field 20 Versed I.V. 2 mg Fentanyl I.V. 100 mcg Versed I.V. 1 mg Versed I.V. 1 mg Hemodynamics Rest HGB: 10.8 (g/dl) Heart Rate: 56 (bpm) Pressure Samples Time Site Value (mmHg) Purpose Heart Use Rate(bpm) 12:23 LV 126/7,12 Snapshot 54 12:24 AO 117/67(87) Snapshot 55 Snapshots Pre Cath Intra NCS Post Cath Vital Signs Time Heart Resp SPO2 etCO2 NIBP (mmHg) Rhythm Pain Sedation Rate (ipm) (%) (mmHg) Status Level (bpm) 12:01:07 56 15 98 0 167/104(146) NSR 0 (11) 10(A) , No pain 12:06:24 53 15 98 0 166/95(145) NSR 0 (11) 10(A) , No pain 12:10:42 56 17 100 34.8 167/96(150) NSR 0 (11) 10(A) , No pain 12:15:06 56 12 96 0 135/75(101) NSR 0 (11) 10(A) , No pain 12:19:16 55 16 96 0 129/80(111) NSR 0 (11) 10(A) , No pain 12:23:32 55 15 96 0 131/70(102) NSR 0 (11) 10(A) , No pain 12:27:47 55 14 97 0 134/74(109) NSR 0 (11) 9(A) , No pain 12:32:02 54 19 98 33.3 141/77(118) NSR 0 (11) 9(A) , No pain Medications Time Medication Route Dose Verified Delivered Reason Notes Eff ectiveness by by 11:59:29 0.9% NaCl I.V. 100 Gene Gene Per ml/hr Jarad Ariasigan physician RN RN 11:59:41 Oxygen etCO2 2 Gene Gene Per Nasal l/min Lordeion Ariasigan physician cannula RN RN 11:59:51 Heparin Flush added 2 Gene Gene used for Bag to bags Lorigan Lorigan procedure (1000units/500ml field RN RN NS) 12:00:03 Lidocaine 2% added 20ml Gene Gene for local to vial Lorigan Lorigan anesthetic field RN RN 12:15:09 Versed I.V. 2 mg Gene Gene for Lorigan Lorigan sedation RN RN 12:15:20 Fentanyl I.V. 100 Egne Gene for mcg Lorigan Lorigan sedation RN RN 12:18:06 Versed I.V. 1 mg Gene Gene for Lorigan Lorigan sedation RN RN 12:22:45 Versed I.V. 1 mg Gene Gene for Lorigan Lorigan sedation RN manganese wheeler Log Time Note 11:34:26 Informed consent obtained and on chart 11:34:29 Admit Source: Emergency department 11:34:42 Diagnostic Cath status Elective 11:34:43 Jonathan Posadas RT(R) sent for patient. Start room use. 11:34:45 Time tracking: Call back (After hours or weekends) 11:34:48 Plan of Care:Hemodynamics will remain stable., Cardiac rhythm will remain stable., Comfort level will be maintained., Respiratory function will remain adequate., Patient/ family verbilizes understanding of procedure., Procedure tolerated without complication., Recovers from procedure without complications.. 11:35:01 H&P Date Dictated: 11/05/2018 Within 30 days and on chart.. 11:35:39 Lab Result : BUN 23 mg/dl 11:35:39 Lab Result : Hemoglobin 10.8 g/dl 11:35:39 Lab Result : Creatinine 1.7 mg/dl 11:35:39 Lab Result : Hematocrit 32.7 % 11:35:44 Lab results completed and on chart. 11:53:18 Patient received from PCU to CCL 1 Alert and oriented. Tansferred to table in Supine position. 11:53:20 Warm blankets applied, and christine hugger turned on for patient comfort. 11:53:21 Correct patient and procedure confirmed by team. 11:53:21 ECG and BP/O2 sat monitors applied to patient. 11:53:22 Full Disclosure recording started 11:59:14 Vital chart was started 11:59:29 0.9% NaCl 100 ml/hr I.V. was administered by Gene Abraham RN; Per physician; 11:59:41 Oxygen 2 l/min etCO2 Nasal cannula was administered by Gene Abraham RN; Per physician; 11:59:51 Heparin Flush Bag (1000units/500ml NS) 2 bags added to field was administered by Gene Abraham RN; used for procedure; 12:00:03 Lidocaine 2% 20ml vial added to field was administered by Gene Abraham RN; for local anesthetic; 12:01:21 Baseline sample Acquired. 12:01:24 Rhythm: sinus bradycardia 12:01:30 Pre-procedure instructions explained to patient. 12:01:31 Pre-op teaching completed and patient verbalized understanding. 12:01:33 Family in patients room. 12:01:35 Patient NPO since Midnight. 12:01:57 Patient allergic to Other allergyprednisone, tramadol, hcl 12:02:00 Is the patient allergic to Iodine/contrast media? No. 12:02:03 Is patient on blood thinner?Yes 12:02:06 ACC The patient was administered the following blood thiners within the last 24 hours: ACCPlavix 12:02:53 Patient diabetic? No. 12:02:55 Previous problem with sedation/anesthesia? No ? 12:02:56 Snore? Yes 12:02:57 Sleep apnea? Yes 12:02:59 Deviated septum? No 12:02:59 Opens mouth fully? Yes 12:03:00 Sticks out tongue? Yes 12:03:05 Airway obstruction? Yes COPD 12:03:07 Dentures? No ? 12:03:13 Pre procedure: right dorsailis pedis pulse 2+ Normal; easily identifiable; not easily obliterated 12:03:16 Pre procedure: left dorsailis pedis pulse 2+ Normal; easily identifiable; not easily obliterated 12:03:19 Patient pain scale 0/10 ?. 12:03:30 IV patent on arrival in right hand with 0.9% NaCl at [facility]. 12:03:34 Bilateral groins area was prepped with chlora-prep and draped in sterile fashion 12:03:35 Alarms reviewed by R. N. 12:03:36 Sharps counted by scrub and verified by R.N. 12:03:38 Use device set Femoral Dx 12:03:39 ACIST Syringe (70266) opened to sterile field. 12:03:39 Bag Decanter (2002S) opened to sterile field. 12:03:40 Medline Cath Pack ([id number]) opened to sterile field. 12:03:40 DIAGNOSTIC WIRE .035 260cm J wire (330413) opened to sterile field. 12:03:42 ACIST Hand Control (46804) opened to sterile field. 12:03:42 ACIST Manifold (73688) opened to sterile field. 12:03:43 DIAGNOSTIC Multipack 5Fr catheter set ([id number]) opened to sterile field. 12:03:45 Tegaderm 4 x 4 (1626W) opened to sterile field. 12:03:47 SHEATH 5FR [place] (RKR501) opened to sterile field. 12:14:10 Zero performed for pressure channel P1 12:14:14 Zero performed for pressure channel P1 12:14:21 Final Timeout: patient, procedure, and site verified with staff and physician. All members of the team are in agreement. 12:14:25 Right groin site verified by team. 12:14:28 Physical assessment completed. ASA score P 2 - A patient with mild systemic disease as per Leo Rooney MD. 12:14:32 Sedation plan: IV Moderate Sedation Medication:Versed, Fentanyl 12:15:09 Versed 2 mg I.V. was administered by Gene Abraham RN; for sedation; 12:15:20 Fentanyl 100 mcg I.V. was administered by Gene Abraham RN; for sedation; 12:16:40 Procedure started. 12:17:00 Local anesthetic to right femoral artery with Lidocaine 2% by Leo Rooney MD.INITIAL ACCESS ONLY 12:17:24 A 5 Fr sheath was inserted into the Right Femoral artery 12:18:06 Versed 1 mg I.V. was administered by Gene Abraham RN; for sedation; 12:18:23 A MULTIPACK JL 4.0 5Fr catheter was advanced over the wire and used for Left Coronary Angiography. REMOVED, UNABLE TO CANNULATE 12:20:57 A DIAGNOSTIC JL 5 5Fr catheter ([id number]) was advanced over the wire and used for Left Coronary Angiography. 12:22:10 Catheter removed. 12:22:45 Versed 1 mg I.V. was administered by Gene Abraham RN; for sedation; 12:22:52 A MULTIPACK Pigtail 5 Fr catheter was advanced over the wire and used for LV Angiography. 12:24:35 LV gram done using [place] 12:24:43 Injector settings: Ml/sec: 10, Volume: 20, 12:25:22 A MULTIPACK Pigtail 5 Fr catheter was advanced over the wire and used for Aortic Root Angiography. 12:25:24 Catheter removed. 12:26:31 A MULTIPACK 3DRC 5Fr catheter was advanced over the wire and used for Right Coronary Angiography. 12:27:02 A MULTIPACK 3DRC 5Fr catheter was advanced over the wire and used for SVG Angiography. TO RCA-OCCLUDED 12:27:45 A MULTIPACK 3DRC 5Fr catheter was advanced over the wire and used for SVG Angiography. TO CIRC 12:28:43 A MULTIPACK 3DRC 5Fr catheter was advanced over the wire and used for Internal mammary arteriography. TO LAD 12:30:15 Catheter removed. 12:30:32 Sheath removed intact; hemostasis achieved with Exoseal to the Right Femoral artery. 12:30:36 EXOSEAL 5Fr (EX500) opened to sterile field. 12:30:38 Procedure ended.(Physican Out) 12:31:11 Fluoroscopy time 05.00 minutes. 12:31:15 Flurop Dose total: 754 12:31:15 Fluoroscopy dose: 754 mGy 12:31:55 Contrast amount:Isovue 300 133ml. 12:31:57 Sharps counted by scrub and verified by R.N. 12:31:58 Insertion/operative site no bleeding no hematoma. 12:32:02 Post-op/insertion site Right Femoral artery dressed using a 4 x 4 and Tegaderm. 12:32:05 Post right femoral artery:stable, clean and dry 12:32:06 Post Procedure Pulses reassessed and unchanged 12:32:11 Post-procedure physical assessment completed. ASA score P 2 - A patient with mild systemic disease as per Leo Rooney MD. 12:32:14 Post procedure rhythm: unchanged. 12:32:16 Estimated blood loss: 5 ml 12:32:18 Post procedure instruction explained to patient.Patient verbalizes understanding. 12:32:18 Patient needs reinforcement of post procedure teaching. 12:32:35 Procedure type changed to Cath procedure, Diagnostic procedure, LHC, LHC w/Coronaries w/Grafts, Sedation Charges, Moderate Sedation up to 15 minutes 12:32:43 Procedure Complication : No complications 12:32:46 See physician's report for complete and final results. 12:33:39 Procedure and supply charges have been captured, reviewed, submitted and are correct. 12:34:08 Vital chart was stopped 12:34:11 Report given to PCU. 12:34:14 Patient transfered to PCU with Bed. 12:34:22 Procedure ended. 12:34:22 Full Disclosure recording stopped 12:34:26 End room use (Document Last) Device Usage Item Name Manufacture Quantity Catalog Hospital Part Current Minimal L ot# / Number Charge Number Stock Stock Serial# Code ACIST Acist 1 24221 405010 901498 821340 20 Syringe Medical (56043) Systems Inc Bag Microtek 1 972685 65915 584422 5 Decanter Medical Inc. () Medline Medline 1 [id number] 561936 83326 929555 5 Cath Pack ([id number]) DIAGNOSTIC [place] 1 171830 818422 352051 001140 30 WIRE .035 260cm J wire (414505) ACIST Hand Acist 1 75533 621897 573477 926173 5 Control Medical (84057) Systems Inc ACIST Acist 1 49764 697511 527377 692831 5 [facility] Medical (13511) Systems Inc DIAGNOSTIC Cardinal 1 QR0558 334686 39410 285346 30 Multipack Health 5Fr catheter set (GN6120) Tegaderm 4 3M 1 1626W 862801 119206 150338 5 x 4 (1626W) SHEATH 5FR Terumo 1 [id number] 772238 887967 791012 5 [place] (PXP305) MULTIPACK Cardinal 1 234667 5 JL 4.0 5Fr Health catheter DIAGNOSTIC Cardinal 1 [id number] 715323 315407 247858 5 JL 5 5Fr Health catheter ([id number]) MULTIPACK Cardinal 1 597983 5 Pigtail 5 Health Fr catheter MULTIPACK Cardinal 1 058309 5 3DRC 5Fr Health catheter EXOSEAL 5Fr Cardinal 1 EX500 962679 798858 302021 10 (EX500) Health Signature Audit [place] Stage Time Signature Unsigned Intra-Procedure 11/06/2018 Jennifer 12:34:35 PM Counts RT(R) Signatures Monitor : Jennifer Signature : Counts RT Date : Time : [address] [address]
--- NOTE | ~2018-11-05 | HP ---
PATIENT: ADELAIDE RICHMOND MEDICAL RECORD: [id number] ACCOUNT: [id number] LOCATION:. D.2121 : 53 ADMISSION DATE: 11/05/18 PCP: LAWANDA MAI DO HISTORY AND PHYSICAL EXAMINATION HISTORY: A 63-year-old gentleman with known history of coronary artery disease and most recently status post intervention to saphenous graft via Dr. Wilkins. He has some distal disease. He has been having elevations in his blood pressures of late, adjusting this per renal. He began having chest pressure and tightness mostly with exertion, getting approximately on Wednesday and then progressing throughout the week with rest symptomology yesterday. Enzymes are negative. ECG showed LVH, well within window for restenosis. We are asked to see him concerning his cardiovascular status. PAST MEDICAL HISTORY: Includes; 1. History of hypertension. 2. Hyperlipidemia. ALLERGIES: TRAMADOL AND PREDNISONE. MEDICATIONS: Include Plavix 75 mg p.o. daily, atorvastatin 40 mg p.o. at bedtime, losartan 25 b.i.d., clonidine 0.1 b.i.d., and Ambien 5 at bedtime. SOCIAL HISTORY: . Smokes about a pack a day. Nondrinker. No set exercise program. REVIEW OF SYSTEMS: The patient reports easy bruising but reports no swollen glands. The patient reports no fever, no night sweats, no significant weight gain, no significant weight loss. No significant exercise tolerance. The patient reports no dry eyes, no irritation, no vision change. Patient reports no difficulty hearing and no ear pain. Patient reports no frequent nose bleeds or nose and sinus problems. Patient reports on arm pain on exertion. No shortness of breath while lying down. No history of heart murmur. Patient reports no cough, no wheezing or coughing up blood. Patient reports no abdominal pain, no vomiting. Normal appetite. No diarrhea and not vomiting blood. No nausea and no constipation. Patient reports no incontinence. No difficulty urinating. No hematuria. No increased frequency. Patient reports no muscle aches. No weakness, no arthralgias, no back pain. No swelling of the extremities. Patient reports no abnormal mole, no jaundice, no rashes. Reports no loss of consciousness. No weakness and no numbness. No seizures, dizziness, or headaches. The patient reports no depression, no sleep disturbance, feeling safe in a relationship and no alcohol abuse. Patient reports on fatigue. Reports no runny nose or sinus pressure. No itching, no hives, and no frequent sneezing. PHYSICAL EXAMINATION: GENERAL: Pleasant gentleman, in no acute distress, appears stated age. VITAL SIGNS: Blood pressure 166/93. Pulse 61 and regular. HEENT: Normocephalic and atraumatic. NECK: No JVD or bruit. HEART: Regular. S4 gallop is noted. II/ systolic ejection murmur. LUNGS: Good air excursion. ABDOMEN: Soft and nontender. EXTREMITIES: Pulses 2+. No edema. HISTORY AND PHYSICAL [id number] ADELAIDE RICHMOND IMPRESSION: Acute coronary syndrome. PLAN: Plan for angiography and intervention based on above. TRANSINT:[id number] Voice Confirmation ID: [id number] DOCUMENT ID: [id number] JIM OLEA MD CC: [id number] DICTATION DATE: 11/06/18922 CREMATORIUM OPERATOR: 11/06/18 1113 ADM IN [facility] [address] [id number]
[~2018-11-05 16:36] MED LIST changes: +AMBIEN5 MG PO; +FEXOFENADINE HC60 MG PO; +NIFEDIPINE ER60 MG PO; +PROTONIX40 MG PO; +SYMBICORT 16010.2 GM INH; +VITAMIN D250000 UNIT PO
[2018-11-05 16:59] VITALS: BP 170/98
[2018-11-05 17:08] LABS: BASOPHILS 0.1 % (0-2); HEMATOCRIT 32.7 % (42.0-54.0); HEMOGLOBIN 10.8 g/dL (13.5-17.5); IMMATURE GRANULOCYTES 0.3 % (0-5); LYMPHOCYTES 17.3 % (15-50); MCH 32.8 pg (26.0-34.0); MCV 99.4 fL (80.0-100.0); MEAN PLATELET VOLUME 8.4 fL (7.4-10.4); NEUTROPHILS 73.3 % (40-80); PLATELET COUNT 252 10x3/uL (130-400); RBC 3.29 10x6/uL (4.20-6.10); RDW 14.1 % (11.5-14.5); WBC 10.2 10x3/uL (4.8-10.8)
[2018-11-05 17:37] VITALS: BP 184/106
[2018-11-05] MEDS ORDERED: DOXYCYCLINE HY100 M2 PO (17:44)
[2018-11-05] MEDS ORDERED: COZAAR25 MG PO (17:45)
[2018-11-05] MEDS ORDERED: PLAVIX75 MG PO (17:45)
[2018-11-05 17:46] VITALS: BP 144/120
[2018-11-05 17:48] VITALS: BP 157/87
[2018-11-05 17:49] LABS: ALBUMIN 2.7 g/dL (3.4-5.0); ALKALINE PHOSPHATASE 132 U/L (46-116); ALT (SGPT) 18 U/L (10-68); BILIRUBIN - TOTAL 0.37 mg/dL (0.2-1.3); CALC OSMOLALITY 276 mosm/kg (275-300); CALCIUM 8.4 mg/dL (8.5-10.1); CARBON DIOXIDE 27.6 mmol/L (21.0-32.0); CHLORIDE - SERUM 101 mmol/L (98-107); CREATININE - SERUM 1.7 mg/dL (0.6-1.3); GLUCOSE 85 mg/dL (74-106); POTASSIUM - SERUM 4.1 mmol/L (3.5-5.1); PROTEIN - SERUM 6.6 g/dL (6.4-8.2); SODIUM 137 mmol/L (136-145); UREA NITROGEN 23 mg/dL (7-18); eGFR NON AFRICAN AMERICAN 43 mL/min (90-120)
[2018-11-05 17:59] LABS: CKMB 1.6 U/L (0.0-3.6); CREATINE KINASE 82 UL (21-232); MAGNESIUM - SERUM 1.3 mg/dL (1.8-2.4); TROPONIN-I 0.024 ng/mL (0.000-0.060)
[2018-11-05 18:01] LABS: PROTIME 13.7 SECONDS (11.6-15.0)
[2018-11-05 18:02] LABS: INR 1.06 (0.85-1.17)
[2018-11-05 18:34] VITALS: BP 134/94
--- NOTE | 2018-11-05 19:00 | NUR ---
BEDSIDE REPORT FROM MAY AVILA. PT DENIES ANY NEEDS AT THIS TIME
[2018-11-05 19:30] VITALS: BP 147/87
--- NOTE | 2018-11-05 20:00 | NUR ---
PT UP TO BATHROOM ABLE TO AMBULATE INDEPENDENTLY
--- NOTE | 2018-11-05 20:19 | NUR ---
IMMEDIATE ATTEMPT TO RETURN CALL TO COY IN ER TO GET REPORT. PLACED ON HOLD, THEN TOLD SHE WOULD CALL BACK.
--- NOTE | 2018-11-05 20:27 | NUR ---
REPORT RECIEVED FROM COY IN ER. STATES PT HAS HAD ASA/IV LOPRESSOR AND NORVASC FOR ELEVATED BP AND LAST BP WAS 147/87.
--- NOTE | 2018-11-05 20:56 | NUR ---
PT ARRIVED TO ROOM 2122 FROM ER VIA WHEELCHAIR. ALERT/ORIENTED. ADMISSION ASSESSMENT INITIATED.
[2018-11-05 22:43] LABS: CKMB 1.4 U/L (0.0-3.6); CREATINE KINASE 82 UL (21-232); TROPONIN-I 0.025 ng/mL (0.000-0.060)
--- NOTE | 2018-11-05 23:40 | NUR ---
PT C/O PAIN TO HEAD/NECK. PAGE TO DR RICE AND ORDERS RECIEVED.
[2018-11-06] VITALS (7 sets, daily range): BP systolic 132–166; BP diastolic 60–93; Ht 165.1 cm; Wt 83.2 kg
--- NOTE | 2018-11-06 00:01 | NUR ---
ADMINISTERED TYLENOL. NOW PT C/O TIGHTNESS IN CHEST. EXPLAINED TO HIM THAT DR MAI WANTS HIM TO TAKE S/L NITRO FOR CHEST PRESSURE AT THIS TIME.
--- NOTE | 2018-11-06 00:28 | NUR ---
AFTER RECIEVING TYLENOL FOR HEADACHE, PT SAYING HIS STERNUM HURTS AND IT FEELS LIKE WHEN HE CAME IN TO THE HOSPITAL. ADMINISTERED NITRO 0.4MG SL X 1 AND WILL MONITOR RESPONSE. SR PER TELEMETRY. VSS. C/O FEELING BP WAS UP ,BUT IT WAS 147/64.
--- NOTE | 2018-11-06 01:02 | NUR ---
PT NOW RESTING WITH EYES CLOSED. RESPS EVEN/NONLABORED. WILL MONITOR.
[2018-11-06 06:53] LABS: CKMB 1.5 U/L (0.0-3.6); CREATINE KINASE 66 UL (21-232); TROPONIN-I 0.026 ng/mL (0.000-0.060)
[2018-11-06 09:17] LABS: BASOPHILS 0.1 % (0-2); EOSINOPHILS 3.7 % (0-7); HEMATOCRIT 30.5 % (42.0-54.0); HEMOGLOBIN 10.1 g/dL (13.5-17.5); IMMATURE GRANULOCYTES 0.3 % (0-5); LYMPHOCYTES 27.1 % (15-50); MCH 33.1 pg (26.0-34.0); MCHC 33.1 g/dL (31.0-37.0); MEAN PLATELET VOLUME 9.1 fL (7.4-10.4); MONOCYTES 8.3 % (2-11); NEUTROPHILS 60.5 % (40-80); PLATELET COUNT 288 10x3/uL (130-400); RBC 3.05 10x6/uL (4.20-6.10); RDW 14.1 % (11.5-14.5)
[2018-11-06 09:24] LABS: ANION GAP 13.4 mmol/L (8-16); CREATININE - SERUM 1.7 mg/dL (0.6-1.3); POTASSIUM - SERUM 4.4 mmol/L (3.5-5.1)
[2018-11-06 09:30] LABS: WBC 7.4 10x3/uL (4.8-10.8)
--- NOTE | 2018-11-06 10:31 | NUR ---
ALERT AND ORIENTED X4. SITTING UP IN BED. CONSENTS FOR COMMERCIAL COORDINATOR SIGNED ON CHART. SINUS RHYTHM PACED 61 ON TELEMETRY. DENIES ANY NEEDS. PRE-OP COMPLETE. CONTINUE PLAN OF CARE AND SAFETY PRECAUTIONS.
--- NOTE | 2018-11-06 12:51 | NUR ---
RETURNS FROM [employer]OVERY WITH C/D/I DRESSING TO RIGHT GROIN. TO LAY FLAT X 2 HOURS. DENIES NEEDS AT THIS TIME. WILL MONITOR.
--- NOTE | 2018-11-06 15:02 | NUR ---
SITTING UP IN BED EATING. RT GROIN DRESSING CLEAN DRY INTACT. FREE FROM BLEEDING. FREE FROM HEMATOMA. TOLERATING MEAL. DENIES ANY NEEDS. CONTINUE PLAN OF CARE AND SAFETY PRECAUTIONS.
[2018-11-06] MEDS ORDERED: NORVASC5 MG PO (15:47)
--- NOTE | 2018-11-06 18:09 | NUR ---
ALERT AND ORIENTED X4. SITTING UP IN BED. DC LT HAND IV TIP INTACT. DISCHARGE INSTRUCTIONS GIVEN VERBALLY AND WRITTEN. DISCHARGE PAPERS SIGNED ON CHART. ESCORT TO RIDE VIA WHEELCHAIR. REMAINS FREE FROM INJURY.
--- NOTE | 2018-11-07 11:32 | MORECARE ---
CASE MANAGEMENT DISCHARGE SUMMARY PATIENT: ADELAIDE RICHMOND UNIT: [id number] ADM DATE: 11/05/18 AGE: 63 : 53 SEX: M ROOM/BED: D.2121 AUTHOR: KELSI VELASCO PHYSICIAN: REFERRING PHYSICIAN: LAWANDA MAI DO DATE OF SERVICE: 11/07/18 Discharge Plan Patient Name: ADELAIDE RICHMOND Facility: [facility]:[place] : 1955 Planned Disposition: Home Anticipated Discharge Date: 11/06/18 Discharge Date: 11/06/2018 Expected LOS: 1 Initial Reviewer: [email or web address] Initial Review Date: 11/07/2018 Generated: 11/07/18 12:32 pm Patient Name: ADELAIDE RICHMOND Page 11027 at 1132 All edits/amendments must be made on the electronic document DICTATION DATE: 11/07/18 1131 PHYSICIAN INDUSTRIAL: BRIAN 11/07/18 1131 RPT#: [id number] DC DATE:11/06/18 STATUS: DIS IN [facility] [address] [place] [address] END OF REPORT
== END 2018-11-06 18:11 | disposition home or self-care (01) ==
LOC: D.ER 16:36 → D.EDHOLD 17:36 → OBSVTIME 17:36 → D.M2 19:53
PROVIDERS: Emergency Medicine; Internal Medicine Interventional Cardiology; ADMIT Family Medicine
DX: I25.10 Atherosclerotic heart disease of native coronary artery without angina pectoris (principal); I24.9 Acute ischemic heart disease, unspecified; I10 Essential (primary) hypertension; E78.5 Hyperlipidemia, unspecified; I72.4 Aneurysm of artery of lower extremity

== ENCOUNTER 2018-11-06 21:33 | Observation (INO) | payer OTHER ==
[~2018-11-06] VITALS: Ht 165.1 cm; Wt 80.0 kg
[~2018-11-06 21:33] MED LIST changes: +COZAAR25 MG PO; +DOXYCYCLINE HY100 M2 PO; +NORVASC5 MG PO
[2018-11-06 22:15] VITALS: BP 224/119
[2018-11-06 22:41] LABS: BASOPHILS 0.1 % (0-2); EOSINOPHILS 3.4 % (0-7); HEMATOCRIT 35.4 % (42.0-54.0); HEMOGLOBIN 11.9 g/dL (13.5-17.5); IMMATURE GRANULOCYTES 0.2 % (0-5); LYMPHOCYTES 18.3 % (15-50); MCH 33.6 pg (26.0-34.0); MCHC 33.6 g/dL (31.0-37.0); MEAN PLATELET VOLUME 8.8 fL (7.4-10.4); MONOCYTES 6.7 % (2-11); NEUTROPHILS 71.3 % (40-80); PLATELET COUNT 276 10x3/uL (130-400); RBC 3.54 10x6/uL (4.20-6.10)
[2018-11-06 22:48] LABS: INR 1.11 (0.85-1.17); PROTIME 13.8 SECONDS (11.6-15.0)
[2018-11-06 22:49] LABS: APTT 60.9 SECONDS (22.8-39.4)
[2018-11-06 22:58] LABS: ALBUMIN 2.9 g/dL (3.4-5.0); ALKALINE PHOSPHATASE 125 U/L (46-116); ALT (SGPT) 16 U/L (10-68); BILIRUBIN - TOTAL 0.29 mg/dL (0.2-1.3); CALC OSMOLALITY 275 mosm/kg (275-300); CALCIUM 8.8 mg/dL (8.5-10.1); CARBON DIOXIDE 27.5 mmol/L (21.0-32.0); CHLORIDE - SERUM 101 mmol/L (98-107); CREATININE - SERUM 1.7 mg/dL (0.6-1.3); GLUCOSE 80 mg/dL (74-106); PROTEIN - SERUM 7.2 g/dL (6.4-8.2); SODIUM 137 mmol/L (136-145); UREA NITROGEN 20 mg/dL (7-18); eGFR NON AFRICAN AMERICAN 43 mL/min (90-120)
[2018-11-06 22:59] LABS: POTASSIUM - SERUM 3.7 mmol/L (3.5-5.1)
--- NOTE | 2018-11-06 23:00 | NUR ---
US AT PT BEDSIDE.
[2018-11-06 23:01] VITALS: BP 165/117
[2018-11-06 23:09] LABS: CKMB 2.1 U/L (0.0-3.6); CREATINE KINASE 91 UL (21-232); TROPONIN-I 0.033 ng/mL (0.000-0.060)
[2018-11-06 23:10] LABS: MAGNESIUM - SERUM 1.7 mg/dL (1.8-2.4)
[2018-11-06 23:30] VITALS: BP 165/114
[2018-11-07] VITALS (15 sets, daily range): BP systolic 130–208; BP diastolic 84–122; BMI 27.5
--- NOTE | 2018-11-07 00:26 | NUR ---
PT PROVIDED WARM BLANKETS PER REQUEST.
--- NOTE | 2018-11-07 01:02 | NUR ---
PT PROVIDED ICE PACK FOR INCISION SITE PER EDP ORDERS.
--- NOTE | 2018-11-07 01:07 | NUR ---
PT C/O HEADACHE, PT HYPERTENSIVE. RN ADMINISTERED MEDS ORDERED.
--- NOTE | 2018-11-07 01:55 | NUR ---
PT REMAINS HYPERTENSIVE AND CONTINUING TO C/O HEADACHE. EDP NOTIFIED. RN ADMINISTERED MEDS ORDERED.
--- NOTE | 2018-11-07 02:08 | NUR ---
PT C/O PAIN "ALL OVER". RN ADMINISTERED IV MORPHINE AND ZOFRAN ORDERED. PT FAMILY AT BEDSIDE.
--- NOTE | 2018-11-07 04:12 | NUR ---
PT LEFT ED FOR CT.
--- NOTE | 2018-11-07 04:23 | NUR ---
PT RETURNED FROM CT VIA STRETCHER.
--- NOTE | 2018-11-07 05:48 | NUR ---
RECEIVED FROM ER, PT IS A&OX4, 20G. IV-RAC, PLACED TELEMTRY ON PT, PLACED ICE PACK TO R. GROIN, BED IS LOW, SRX2, CALL LIGHT IN REACH, WILL CONTINUE PLAN OF CARE
--- NOTE | 2018-11-07 07:17 | NUR ---
REPORT RECEIVED. WILL CONTINUE WITH POC. PT CURRENTLY LYING SUPINE. CALL LIGHT W/I REACH. SON AT BEDSIDE. PT IS AAO AND UP AD EDWINA. RR EVEN AND UNLABORED ON RA. L.AC PIV IS SALINE LOCKED. PT DENIES ANY NEEDS AT THIS TIME. WILL CTM.
--- NOTE | 2018-11-07 09:19 | NUR ---
AM MEDICATION ADMINISTERED. EXAMINED PT RIGHT GROIN. NO HEMATOMA NOTED. TENDER TO THE TOUCH. PERIPHERAL PULSES EVEN AND BILATERAL. PT DENIES ANY NEEDS. WILL CTM.
--- NOTE | 2018-11-07 09:25 | NUR ---
RESTS IN BED WITH EYES CLOSED. CALL LIGHT IN REACH. WILL MONITOR NEEDS.
--- NOTE | 2018-11-07 12:12 | NUR ---
GRADUALLY LET AIR OUT OF FEM STOP. PT REPORTS OF PAIN IN RIGHT LEG. RIGHT LEG WAS DISCOLORED BUT WAS INSTRUCTED BY CONFERENCE COORDINATOR TO NOT BE ALARMED. RIGHT LEG SLOWLY GETTING COLOR BACK. PT DENIES ANY NEEDS. CALL CONFERENCE COORDINATOR TO COME REMOVE FEM STOP. WILL CTM.
--- NOTE | 2018-11-07 16:29 | NUR ---
PT REPORTS OF SEVERE MIGRAINE LEVEL 06/03. CALLED AND SPOKE WITH AND RECEIVED ORDERS FOR 30MG TORDOL IV X1 AND IF THAT DOES NOT WORK CONTINUE WITH PERCOCET. WILL CTM.
--- NOTE | 2018-11-07 19:30 | NUR ---
RECEIVED REPORT, WILL ASSUME CARE OF PT, PT IS SLEEPIMG, BED IS LOW, SRX1, CALL LIGHT IN REACH, WILL CONTINUE PLAN OF CARE
--- NOTE | 2018-11-07 20:20 | NUR ---
COMPLAINS OF HEADACHE, GAVE PERCOCET ORDER, WILL CONTINUE PLAN OF CARE
[2018-11-08] VITALS (8 sets, daily range): BP systolic 157–204; BP diastolic 95–120; Ht 165.1 cm; Wt 80.0 kg
--- NOTE | 2018-11-08 03:20 | NUR ---
LYING IN BED, RESPIRATIONS EVEN AND UNLABORED. CALL LIGHT IN REACH, WILL CONTINUE WITH PLAN OF CARE.
[2018-11-08 04:42] LABS: BASOPHILS 0.1 % (0-2); EOSINOPHILS 3.3 % (0-7); HEMOGLOBIN 10.9 g/dL (13.5-17.5); IMMATURE GRANULOCYTES 0.1 % (0-5); LYMPHOCYTES 19.4 % (15-50); MCH 32.9 pg (26.0-34.0); MCV 99.7 fL (80.0-100.0); MEAN PLATELET VOLUME 9.1 fL (7.4-10.4); MONOCYTES 7.2 % (2-11); NEUTROPHILS 69.9 % (40-80); PLATELET COUNT 271 10x3/uL (130-400); RBC 3.31 10x6/uL (4.20-6.10); RDW 14.2 % (11.5-14.5); WBC 8.4 10x3/uL (4.8-10.8)
[2018-11-08 05:08] LABS: CALCIUM 8.9 mg/dL (8.5-10.1); CARBON DIOXIDE 26.6 mmol/L (21.0-32.0); CREATININE - SERUM 1.9 mg/dL (0.6-1.3); MAGNESIUM - SERUM 1.6 mg/dL (1.8-2.4); PHOSPHOROUS 3.8 mg/dL (2.5-4.9); POTASSIUM - SERUM 3.6 mmol/L (3.5-5.1)
--- NOTE | 2018-11-08 05:24 | NUR ---
MAG 1.6, STARTED EP
--- NOTE | 2018-11-08 08:01 | HP ---
PATIENT: ADELAIDE RICHMOND MEDICAL RECORD: [id number] ACCOUNT: [id number] LOCATION:.[facility].2110 : 53 ADMISSION DATE: 11/07/18 PCP: LAWANDA MAI DO HISTORY AND PHYSICAL EXAMINATION HISTORY: A 63-year-old male presented to the Emergency Room early this morning with swelling to his right groin after cardiac catheterization yesterday. He also had extremely high blood pressure and headache. PAST MEDICAL HISTORY: Significant for coronary artery disease, GERD, COPD, nicotine dependence, and hypertension. MEDICATIONS: As per med rec. ALLERGIES: PREDNISONE AND TRAMADOL. REVIEW OF SYSTEMS: CONSTITUTIONAL: Significant for severe headache; hypertensive crisis; swelling to the right groin, status post cardiac catheterization, consistent with pseudoaneurysm. HEENT: Denies visual changes, tinnitus, epistaxis, or dysphagia. CARDIOVASCULAR: Denies present chest pain. He had a heart cath yesterday with no acute changes. Recommendation for medical management. Complication of pseudoaneurysm. PULMONARY: Denies hemoptysis. Denies night sweats. GASTROINTESTINAL: Denies hematemesis, hematochezia, or melena. GENITOURINARY: Denies dysuria. MUSCULOSKELETAL: No acute changes. ENDOCRINE: Denies polyuria, polydipsia, or polyphagia. PHYSICAL EXAMINATION: VITAL SIGNS: Temperature 97.5, heart rate 67, respirations 18, blood pressure presently 139/87, O2 sat is 93% on room air. On admission, blood pressure was 201/120. HEENT: Normocephalic and atraumatic. Eyes; pupils are equal, round, and reactive to light and accommodation. Extraocular muscles intact. Conjunctivae are not injected. Ears; canals patent. TMs are intact. Nose; nares patent without drainage. Throat; no erythema and no exudate. NECK: Supple. No lymphadenopathy. No JVD. HEART: Regular rate and rhythm. No S3 or S4. No rub. LUNGS: Clear to auscultation bilaterally. Breathing is nonlabored. ABDOMEN: Soft and nontender. Bowel sounds in all 4 quadrants. EXTREMITIES: Present times 4. NEUROLOGIC: Intact. SKIN: Warm and dry. No rash. He does have swelling in right groin, consistent with pseudoaneurysm. This is at the cath site from his cardiac catheterization yesterday. DIAGNOSTIC DATA: CT of the head; no acute intracranial abnormality. Severe bilateral maxillary sinus disease. Ultrasound of groin; 2.7- x 1.2- x 1.9-cm pseudoaneurysm. Mild turbulent internal vascular flow with a stalk extending to the junction of superficial femoral and common femoral artery with surrounding edema. Chest x-ray; no acute findings. LABORATORY DATA: CBC; white count 9, hemoglobin 11.9, hematocrit 35.4, and HISTORY AND PHYSICAL [id number] [facility] platelets 276. PT is 13.8 and INR is 1.11. Sodium is 137, potassium 3.7, chloride 101, bicarb 27.5, BUN 20, creatinine 1.7, and alk phos 125. Troponin 0.033. ASSESSMENT AND PLAN: 1. Hypertensive crisis. The patient will be admitted. He has nitro paste on. Pain control for his headache. Blood pressure medicines restarted, presently controlled. 2. Pseudoaneurysm, secondary complication to cardiac catheterization yesterday. Cardiology consulted as well as cardiovascular surgery. Ice, mild compression. 3. COPD. Supportive care. 4. Nicotine dependence. I counseled on smoking cessation. 5. Electrolyte abnormalities. Electrolyte protocol. TRANSINT:[id number] Voice Confirmation ID: [id number] DOCUMENT ID: [id number] LAWANDA MAI DO at 0801 CC: [id number] DICTATION DATE: 11/07/18 0942 DOUGH MOLDER HAND: 11/07/18 1124 ADM IN [facility] [address] [place] [address]
--- NOTE | 2018-11-08 09:45 | NUR ---
ROUNDING PT IN BED HAVING ULTRASOUND DONE. PT DENIES ANY CURRENT PAIN OR NEEDS. CL IN REACH. WILL CTM.
--- NOTE | 2018-11-08 11:55 | NUR ---
PTS BP STILL HYPERTENSIVE HOWEVER HE WASNT ON ALL OF HIS HOME MEDICATIONS. PT IS C/O HEADACHE THROBBING. PROVIDED PT WITH PRN MORPHINE FOR PAIN AND TO HELP LOWER BP WELL. PT STATES IT COULD BE HIS NECK ARTHRITIS AND WOULD LIKE TO TRY A HEATING PACK. PT VOICED THANKS AND DENIES ANY FURTHER NEEDS AT THIS TIME. CL IN REACH. WILL CTM.
--- NOTE | 2018-11-08 13:38 | NUR ---
ATTEMPTING PAGING OFFICE FOR THE 4TH TIME NOW. PTS BP IS REMAINING VERY HYPERTENSIVE AND IS NOT RESPONDING TO CURRENT PRN MEDICATIONS AND TREATMENT. PT IS STILL C/O GREEN AND CONCERNED WITH BP. WILL CONTINUE TRYING TO PAGE OR PAGE ANOTHER PHYSICIANS OFFICE ON THIS CASE.
--- NOTE | 2018-11-08 15:42 | NUR ---
PTS BP STILL HYPERTENSIVE DESPITE ALL PRN AND ORDERED MEDICATIONS. MANUALLY CHEKCED LEFT ARM AND REC'D 188/108, THEN RIGHT ARM MANUALLY 182/120. TOO EARLY FOR AN ADDITIONAL PRN WILL NOTIFY PRIMARY PT STILL C/O ACHING HEADACHE AND STATES HE IS JUST FEELING WEAK AND SLIGHTLY NAUSEATED.
--- NOTE | 2018-11-08 18:30 | NUR ---
GARLAND MACHINE OPERATOR COMPLETE. PT LYING IN BED. NO SIGNS OF DISTRESS. DENIES NEEDS AT THIS TIME.
--- NOTE | 2018-11-08 20:00 | NUR ---
PT SITTING UP IN BED ALERT AND ORIENTED. PT DENIES ANY NEEDS OR PAIN AT THIS TIME. BED LOW CALL LIGHT WITHIN REACH. WILL CONTINUE TO MONITOR.
[2018-11-09] VITALS: BP 136/70
[2018-11-09 04:00] VITALS: BP 140/76
--- NOTE | 2018-11-09 04:51 | NUR ---
PT REQUESTED GLASS OF WATER. PT ALERT AND ORIENTED. PT DENIES ANY PAIN AT THIS TIME. BED LOW CALL IGHT WITHIN REACH. WILL CONTINUE TO MONITOR.
[2018-11-09 05:42] LABS: BASOPHILS 0.3 % (0-2); EOSINOPHILS 3.7 % (0-7); HEMATOCRIT 32.4 % (42.0-54.0); HEMOGLOBIN 10.8 g/dL (13.5-17.5); IMMATURE GRANULOCYTES 0.1 % (0-5); LYMPHOCYTES 23.2 % (15-50); MCH 32.7 pg (26.0-34.0); MCHC 33.3 g/dL (31.0-37.0); MCV 98.2 fL (80.0-100.0); MEAN PLATELET VOLUME 9.2 fL (7.4-10.4); MONOCYTES 7.5 % (2-11); NEUTROPHILS 65.2 % (40-80); PLATELET COUNT 275 10x3/uL (130-400); RDW 14.2 % (11.5-14.5); WBC 7.3 10x3/uL (4.8-10.8)
[2018-11-09 05:57] LABS: INR 1.08 (0.85-1.17); PROTIME 13.5 SECONDS (11.6-15.0)
[2018-11-09 05:58] LABS: APTT 58.7 SECONDS (22.8-39.4)
[2018-11-09 06:10] LABS: ANION GAP 13.4 mmol/L (8-16); CALCIUM 8.8 mg/dL (8.5-10.1); CARBON DIOXIDE 26.3 mmol/L (21.0-32.0); CREATININE - SERUM 1.7 mg/dL (0.6-1.3); MAGNESIUM - SERUM 1.8 mg/dL (1.8-2.4); PHOSPHOROUS 3.1 mg/dL (2.5-4.9); POTASSIUM - SERUM 3.7 mmol/L (3.5-5.1)
--- NOTE | 2018-11-09 07:25 | NUR ---
AM ROUNDS COMPLETED. INTRODUCED MYSELF TO PT PRIMARY RN FOR TODAYS SHIFT. PT IS A&O RESTING QUIETLY IN BED AT THIS TIME. SHIFT ASSESSMENT COMPLETED. WILL REVIEW CHART AND PULL MORNING MEDICATIONS AND CPOC. NO CURRENT NEEDS. CL IN REACH.
--- NOTE | 2018-11-09 08:09 | NUR ---
AT BEDSIDE ROUNDING. PTS BP IS FINALLY TRENDING DOWN AND HIS HEADACHE IS RELIEVED. PT WILL MOST LIKELY BE DISCHARGED, WILL DISCUSS WITH CARDIOLOGY AND FIND OUT. PT SITTING UP ON EDGE OF BED EATING BREAKFAST. MORNING MEDICATIONS GIVEN. NO CURRENT NEEDS AT THIS TIME. WILL CTM.
[2018-11-09 08:15] VITALS: BP 161/101
--- NOTE | 2018-11-09 10:54 | NUR ---
PT TOOK SHOWER AND STATES HE IS FEELING MUCH BETTER OVERALL. BP REMAINS CONTROLLED FINALLY. PT SHOULD BE ABLE TO DISCHARGE, WILL DISCUSS WITH CARDIOLOGY AND THEN GO FROM THERE. NO CURRENT NEEDS, CL IN REACH, BED IN LOWEST, SIDE RAILS X2. WILL CTM.
[2018-11-09 11:14] VITALS: BP 132/84
--- NOTE | 2018-11-09 14:04 | NUR ---
ALL CONSULTING DOCTORS HAVE SIGNED OFF FOR DISCHARGE. PAGING TO CONFIRM AND FINALIZE THE D/C ORDERS. PT VERBALIZED UNDERSTANDING AND DENIES ANY CURRENT PAIN OR NEEDS. CL IN REACH, BED IN LOWEST, SIDE RAILS X2. WILL CTM.
[2018-11-09] MEDS ORDERED: NORVASC5 MG PO (14:50)
[2018-11-09] MEDS ORDERED: CATAPRES0.2 MG PO (14:51)
[2018-11-09 15:09] VITALS: BP 157/87
--- NOTE | 2018-11-09 16:28 | NUR ---
DISCHARGE TEACHING PROVIDED AND PAPERS SIGNED. PT VERBALIZED UNDERSTANDING AND DENIES ANY QUESTIONS OR CONCERNS. ALL BELONGINGS COLLECTED AND FAMILY AT BEDSIDE ASSISTING HIM GETTING DRESSED. D/C PTS R.AC PIV WITH CATHETER TIP FULLY INTACT. D/C TELEMETRY AND RETURNED TO [facility]. WILL CTM.
--- NOTE | 2018-11-10 08:36 | MORECARE ---
CASE MANAGEMENT DISCHARGE SUMMARY PATIENT: ADELAIDE RICHMOND UNIT: [id number] ADM DATE: 11/07/18 AGE: 63 : 53 SEX: M ROOM/BED: D.2111 AUTHOR: KELSI VELASCO PHYSICIAN: REFERRING PHYSICIAN: LAWANDA MAI DO DATE OF SERVICE: 11/10/18 Discharge Plan Patient Name: ADELAIDE RICHMOND Facility: [facility]:[place] : 1955 Planned Disposition: Home Anticipated Discharge Date: 11/09/18 Discharge Date: 11/09/2018 Expected LOS: 2 Initial Reviewer: [email or web address] Initial Review Date: 11/10/2018 Generated: 11/10/18 9:36 am Patient Name: ADELAIDE RICHMOND Page 10028 at 0836 All edits/amendments must be made on the electronic document DICTATION DATE: 11/10/18834 BICYCLE DESIGNER: DM 11/10/1835 RPT#: [id number] DC DATE:11/09/18 STATUS: DIS IN [facility] [address] [place] [address] END OF REPORT
--- NOTE | 2018-11-10 18:35 | DS ---
PATIENT:ADELAIDE RICHMOND :53 MEDICAL RECORD: [id number] DISCHARGE SUMMARY ADMISSION DATE: 11/07/18 DISCHARGE DATE: 11/09/18 DATE OF ADMISSION: 11/07/2018 DATE OF DISCHARGE: 11/09/2018 ADMISSION DIAGNOSES: Hypertensive crisis, complications from cardiac catheterization with pseudoaneurysm. DISCHARGE DIAGNOSES: Hypertensive crisis, complications from cardiac catheterization with pseudoaneurysm right groin. HOSPITAL COURSE: The patient had an uneventful hospital course. He was admitted. Cardiology consulted. Vascular surgery consulted. Serial ultrasounds to his right groin showing closure, clotting off of the pseudoaneurysm. Cleared for discharge by cardiovascular surgery, Dr. Mcginnis. Cleared for discharge by cardiology. Had hypertensive issues throughout his hospitalization. Medications restarted. The patient had been sporadically compliant with his clonidine at home. Medications restarted. Blood pressure normalized. The patient discharged to home in stable and improved condition. PHYSICAL EXAMINATION: VITAL SIGNS ON DISCHARGE: Temperature 97.5, blood pressure is 157/87, heart rate 70, respirations 18, O2 sats 97% on room air. HEART: Regular rate and rhythm. LUNGS: Clear. ABDOMEN: Soft, nontender. EXTREMITIES: Present times 4. NEUROLOGIC: Intact. LABORATORY DATA: CBC on discharge: White count 7.3, hemoglobin 10.8, hematocrit 32.4, platelets 275. PT is 13.5, INR is 1.08, PTT 58.7. DISPOSITION: The patient discharged home in significantly improved condition. DISCHARGE MEDICATIONS: Per med rec. Again, counseled on smoking cessation. I will follow up in 7-10 days in the clinic, will also follow up with cardiology. TRANSINT:[id number] Voice Confirmation ID: [id number] DOCUMENT ID: [id number] LAWANDA MAI DO at 1835 CC: [id number] DICTATION DATE: 11/09/181815 SERVICE TECHNICIAN COPIER: 11/10/18 0928 DIS IN 11/09/18 [id number] [place] [address]
== END 2018-11-09 18:15 | disposition home or self-care (01) ==
LOC: D.ER 21:33 → D.M2 11-07 03:50 → OBSVTIME 11-07 03:50 → D.M2 11-07 03:50
PROVIDERS: Family Medicine; ADMIT Family Medicine
DX: I97.89 Other postprocedural complications and disorders of the circulatory system, not elsewhere classified (principal); Y83.8 Other surgical procedures as the cause of abnormal reaction of the patient, or of later complication, without mention of misadventure at the time of the procedure; I16.9 Hypertensive crisis, unspecified; I25.10 Atherosclerotic heart disease of native coronary artery without angina pectoris; K21.9 Gastro-esophageal reflux disease without esophagitis; J44.9 Chronic obstructive pulmonary disease, unspecified; F17.200 Nicotine dependence, unspecified, uncomplicated; I12.9 Hypertensive chronic kidney disease with stage 1 through stage 4 chronic kidney disease, or unspecified chronic kidney disease; N18.2 Chronic kidney disease, stage 2 (mild)

== ENCOUNTER 2018-11-18 16:19 | Emergency (ER) | payer OTHER ==
[~2018-11-18] VITALS: Ht 165.1 cm; Wt 84.4 kg
[~2018-11-18 16:19] MED LIST changes: +CATAPRES0.2 MG PO
[2018-11-18 16:35] VITALS: Ht 165.1 cm; Wt 84.4 kg
[2018-11-18 16:55] LABS: BASOPHILS 0.2 % (0-2); EOSINOPHILS 5.3 % (0-7); HEMATOCRIT 37.4 % (42.0-54.0); HEMOGLOBIN 12.6 g/dL (13.5-17.5); IMMATURE GRANULOCYTES 0.2 % (0-5); LYMPHOCYTES 22.8 % (15-50); MCH 33.6 pg (26.0-34.0); MCHC 33.7 g/dL (31.0-37.0); MCV 99.7 fL (80.0-100.0); MONOCYTES 5.9 % (2-11); NEUTROPHILS 65.6 % (40-80); PLATELET COUNT 323 10x3/uL (130-400); RBC 3.75 10x6/uL (4.20-6.10); RDW 14.2 % (11.5-14.5); WBC 9.2 10x3/uL (4.8-10.8)
[2018-11-18 17:03] LABS: INR 1.02 (0.85-1.17); PROTIME 12.9 SECONDS (11.6-15.0)
[2018-11-18 17:04] LABS: APTT 54.7 SECONDS (22.8-39.4)
[2018-11-18 17:07] LABS: ALBUMIN 3.5 g/dL (3.4-5.0); ALKALINE PHOSPHATASE 163 U/L (46-116); ALT (SGPT) 23 U/L (10-68); BILIRUBIN - TOTAL 0.44 mg/dL (0.2-1.3); CALC OSMOLALITY 270 mosm/kg (275-300); CALCIUM 9.3 mg/dL (8.5-10.1); CARBON DIOXIDE 27.2 mmol/L (21.0-32.0); CHLORIDE - SERUM 96 mmol/L (98-107); CREATININE - SERUM 1.8 mg/dL (0.6-1.3); GLUCOSE 93 mg/dL (74-106); POTASSIUM - SERUM 3.6 mmol/L (3.5-5.1); PROTEIN - SERUM 8.2 g/dL (6.4-8.2); SODIUM 135 mmol/L (136-145); UREA NITROGEN 16 mg/dL (7-18); eGFR NON AFRICAN AMERICAN 40 mL/min (90-120)
[2018-11-18 17:19] LABS: CKMB 2.5 U/L (0.0-3.6); CREATINE KINASE 136 UL (21-232); MAGNESIUM - SERUM 1.8 mg/dL (1.8-2.4); PRO BNP 520 pg/mL (0-125)
[2018-11-18 17:22] LABS: TROPONIN-I < 0.017 ng/mL (0.000-0.060)
[2018-11-18 20:15] VITALS: BP 131/80
== END 2018-11-18 20:15 | disposition home or self-care (01) ==
LOC: D.ER 16:19
PROVIDERS: Family Medicine
DX: I10 Essential (primary) hypertension (principal); R60.9 Edema, unspecified; R00.2 Palpitations; J44.9 Chronic obstructive pulmonary disease, unspecified; F17.200 Nicotine dependence, unspecified, uncomplicated

== ENCOUNTER → 2019-02-08 10:12 | Outpatient (CLI) | payer OTHER ==
[2018-11-18 16:35] VITALS: BMI 29.3
== END | disposition home or self-care (01) ==
LOC: D.CT 10:12
PROVIDERS: ATTEND Internal Medicine Cardiovascular Disease
DX: I71.4 Abdominal aortic aneurysm, without rupture (principal); I71.2 Thoracic aortic aneurysm, without rupture

== ENCOUNTER 2019-10-16 12:03 | Outpatient (CLI) | payer MEDICARE, OTHER ==
[~2019-10-16] VITALS: Ht 165.1 cm; Wt 82.3 kg
--- NOTE | ~2019-10-16 | HEMODYNAMI ---
PATIENT:ADELAIDE RICHMOND MEDICAL RECORD: [id number] : 53 LOCATION:[facility] ADMISSION DATE: 10/16/19 Generatedon:10/16/201916:40 Patient name: ADELAIDE RICHMOND Patient #: [id number] : 1955 Date of study: 10/16/2019 Page: Of Hemodynamic Procedure Report Patient Data Patient Demographics Procedure consent was obtained First Name: ADELAIDE Gender: Male Last Name: YI : 1955 [facility] Initial: IGOR Age: 64 year(s) Patient #: [id number] Race: SSN: [id number] Additional ID: [id number] Contact details Address: [address] [place] [address] [facility] State: [facility] Zip code: [address] Past Medical History History of disease Date Diagnosis Comments CAD Hypertension Allergies Allergen Reaction Date Comments Reported Other allergy 09/03/2016 prednisone, tramadol Other allergy 06/23/2018 PREDENSONE, TRAMADOL Other allergy 06/24/2018 TRAMADOL, PREDENISONE Other allergy 11/06/2018 prednisone, tramadol, hcl Admission Admission Data Admission Date: 10/16/2019 Admission Time: 12:03 Height (in.): 65 BSA: 1.9 (m2) Height (cm.): 165.1 BMI: 30.18 (kg/m2) Weight (lbs.): 181.38 Weight (kg.): 82.27 Lab Results Lab Result Date: 10/16/2019 Lab Result Time: 0:00 Biochemistry Name Units Result Min Max BUN mg/dl 23 --(----)-* 7 18 Creatinine mg/dl 1.9 --(----)-* 0.6 1.3 eGFR ml/min 38 *-(----)-- 90 120 NONAFRICAN CBC Name Units Result Min Max Hemoglobin g/dl 11.5 *-(----)-- 13.5 17.5 Procedure Procedure Types Cath Procedure Diagnostic Procedure [facility] w/Coronaries w/Grafts Procedure Description Procedure Date Procedure Date: 10/16/2019 Procedure Start Time: 16:05 Procedure End Time: 16:33 Procedure Staff Name Function Durga Rueda MD Performing Physician Jerson Quiles RT Monitor Yue Cao RN Nurse Mario Azar RT Scrub Tianna Meri RT Scrub Procedure Data Cath Procedure Fluoroscopy Diagnostic fluoroscopy Total fluoroscopy Time: 6.4 time: 6.4 min min Diagnostic fluoroscopy Total fluoroscopy dose: dose: 289.22 mGy 289.22 mGy Contrast Material Contrast Material Type Amount (ml) Isovue 370 96 Entry Location Entry Primary Successful Side Size Upsize Upsize Entry Closure Succes sful Closure Location (Fr) 1 (Fr) 2 (Fr) Remarks Device Remarks Femoral Left 5 Fr Exoseal artery Diagnostic catheters Device Type Used For End Catheter Placement MULTIPACK JL 4.0 5Fr Left Coronary catheter Angiography DIAGNOSTIC AR2 MOD 5 Fr SVG Angiography catheter ([id number]) DIAGNOSTIC IM 5Fr SVG Angiography catheter ([id number]) MULTIPACK Pigtail 5 Fr LV Angiography catheter DIAGNOSTIC JL 4.0 5Fr catheter ([id number]) DIAGNOSTIC Pigtail 5Fr catheter ([id number]) Procedure Complications No complications Procedure Medications Medication Administration Route Dosage 0.9% NaCl I.V. 100 ml/hr Oxygen etCO2 Nasal cannula 2 l/min Lidocaine 2% added to field 20 Heparin Flush Bag added to field 2 bags (1000units/500ml NS) Versed I.V. 2 mg Fentanyl I.V. 100 mcg Hemodynamics Rest BSA: 1.9 (m2) O2 Consumption: Estimated: 215.78 (ml/min) O2 Consumption indexed: Estimated:113.57 (ml/min/m) Heart Rate: 62 (bpm) Pressure Samples Time Site Value (mmHg) Purpose Heart Use Rate(bpm) 16:24 LV 118/-3,17 EDP 61 16:26 AO 117/63(88) Pullback 60 16:26 LV 118/14,21 Pullback 60 Gradients Valve Time Site 1 Site 2 Mean SEP/DFP Peak To Heart Use (mmHg) (sec/min) Peak Rate (mmHg) (bpm) Aortic 16:26 LV AO 6 16 1 60 118/14,21 117/63(88) Calculations Valve P-P Mean Valve Index Valve Source Name Gradient Area Flow (cm2) Aortic 1 6 1 6 Snapshots Pre Cath Intra NCS Post Cath Vital Signs Time Heart Resp SPO2 etCO2 NIBP (mmHg) Rhythm Pain Sedation Rate (ipm) (%) (mmHg) Status Level (bpm) 15:51:07 54 10 99 35 133/84(110) SB 0 (11) 10(A) , No pain 15:55:17 57 11 100 29.3 132/80(111) SB 0 (11) 10(A) , No pain 15:59:29 64 13 97 30.8 122/74(96) SB 0 (11) 9(A) , No pain 16:03:39 59 10 96 18.8 122/71(98) SB 0 (11) 9(A) , No pain 16:07:47 59 13 97 35.3 118/73(90) SB 0 (11) 9(A) , No pain 16:11:57 57 11 95 32.3 110/66(90) SB 0 (11) 9(A) , No pain 16:16:01 59 11 95 33 107/70(85) SB 0 (11) 9(A) , No pain 16:20:07 57 10 96 32.3 109/67(82) SB 0 (11) 9(A) , No pain 16:24:12 59 10 95 32.3 110/69(79) SB 0 (11) 9(A) , No pain 16:28:18 59 11 95 32.3 110/65(84) SB 0 (11) 10(A) , No pain 16:32:22 58 11 95 31.5 111/71(86) SB 0 (11) 10(A) , No pain Medications Time Medication Route Dose Verified Delivered Reason Notes Eff ectiveness by by 15:48:52 0.9% NaCl I.V. 100 Durga Yue used for ml/hr Mohit Cao air hammer stripper 15:48:59 Oxygen etCO2 2 Durga Yue used for Nasal l/min Mohit Cao procedure cannula RN 15:49:04 Lidocaine 2% added 20ml Durga Durga for local to vial Mohit Rueda MD anesthetic field 15:49:09 Heparin Flush added 2 Durga Durga used for Bag to bags Mohit Rueda MD procedure (1000units/500ml field NS) 15:53:58 Fentanyl I.V. 100 Durga Yue for mcg Mohit Cao sedation RN 15:54:35 Versed I.V. 2 mg Durga Yue for Mohit Cao sedation public health epidemiologist Log Time Note 15:20:49 Jerson Quiles RT(R) sent for patient. Start room use. 15:32:50 Time tracking: Regular hours (M-F 7:00 - 5:00) 15:32:54 Plan of Care:Hemodynamics will remain stable., Cardiac rhythm will remain stable., Comfort level will be maintained., Respiratory function will remain adequate., Patient/ family verbilizes understanding of procedure., Procedure tolerated without complication., Recovers from procedure without complications.. 15:40:53 Patient received from Pre/Post Procedure Room to [facility] 3 Alert and oriented. Tansferred to table in Supine position. 15:40:55 Signed procedure consent form obtained from patient. 15:40:56 Warm blankets applied, and christine hugger turned on for patient comfort. 15:40:56 Correct patient and procedure confirmed by team. 15:40:57 ECG and BP/O2 sat monitors applied to patient. 15:48:43 Vital chart was started 15:48:52 0.9% NaCl 100 ml/hr I.V. was administered by Yue Cao RN; used for procedure; Verbal order read back and verified. 15:48:59 Oxygen 2 l/min etCO2 Nasal cannula was administered by Yue Cao RN; used for procedure; Verbal order read back and verified. 15:49:04 Lidocaine 2% 20ml vial added to field was administered by Durga Rueda MD; for local anesthetic; Verbal order read back and verified. 15:49:09 Heparin Flush Bag (1000units/500ml NS) 2 bags added to field was administered by Durga Rueda MD; used for procedure; Verbal order read back and verified. 15:49:52 Risk of Mortality: 0.2 15:49:54 Risk of blood transfusion: 2.2 15:49:58 Risk of KARL: 4.8 15:50:29 Stress Test: no; N/A ? 15:50:48 Rhythm: sinus rhythm 15:50:55 H&P Date Dictated: 10/04/2019 Within 30 days and on chart., H&P Addendum completed by physician on day of procedure. (MUST COMPLETE FOR ALL OUTPATIENTS). 15:50:55 Pre-procedure instructions explained to patient. 15:50:56 Pre-op teaching completed and patient verbalized understanding. 15:50:58 Family in patients room. 15:50:59 Patient NPO since Midnight. 15:51:00 Is the patient allergic to Iodine/contrast media? No. 15:51:18 Is patient on blood thinner?Yes 15:51:21 ACC The patient was administered the following blood thiners within the last 24 hours: ACCPlavix 15:51:24 Patient diabetic? No. 15:51:27 Previous problem with sedation/anesthesia? No ? 15:51:27 Snore? Yes 15:51:29 Sleep apnea? No 15:51:31 Deviated septum? No 15:51:32 Opens mouth fully? Yes 15:51:33 Sticks out tongue? Yes 15:51:36 Airway obstruction? No ? 15:51:40 Dentures? Yes IN TIGHT 15:51:43 Pre procedure: right dorsailis pedis pulse 1+ Palpable, but thready & weak; easily obliterated 15:51:46 Patient pain scale 0/10 ?. 15:51:52 IV patent on arrival in left forearm with 0.9% NaCl at [facility]. 15:51:54 Lab results completed and on chart. 15:52:11 Right groin area was prepped with chlora-prep and draped in sterile fashion 15:52:12 Alarms reviewed by R. N. 15:52:13 Sharps counted by scrub and verified by R.N. 15:52:40 Patient Height : 65 inches 15:52:45 Patient Weight : 181.38 lbs 15:53:26 Lab Result : Hemoglobin 11.5 g/dl 15:53:26 Lab Result : eGFR NONAFRICAN 38 ml/min 15:53:26 Lab Result : BUN 23 mg/dl 15:53:26 Lab Result : Creatinine 1.9 mg/dl 15:53:42 Physician arrived 15:53:48 --------ALL STOP TIME OUT------ 15:53:58 Fentanyl 100 mcg I.V. was administered by Yue Cao RN; for sedation; Verbal order read back and verified. 15:54:35 Versed 2 mg I.V. was administered by Yue Cao RN; for sedation; Verbal order read back and verified. 15:54:45 Final Timeout: patient, procedure, and site verified with staff and physician. All members of the team are in agreement. 15:54:51 Right groin site verified by team. 15:54:55 Fire Safety Assessment: A--An alcohol-based skin anteseptic being used preoperatively., C--Open oxygen or nitrous oxide is being used., D--An ESU, laser, or fiber-optic light is being used. 15:54:59 Physical assessment completed. ASA score P 2 - A patient with mild systemic disease as per Durga Rueda MD. 15:55:12 3b) 30-44 Moderately reduced kidney function. 15:55:43 Maximum allowable contrast dose (3.7 X eGFR X 0.75)106 ml. 15:55:50 Sedation plan: IV Moderate Sedation Medication:Versed, Fentanyl 16:00:24 Timer 1 started at 3:50 PM, stopped at 4:00 PM, duration 00:10:03 sec. 16:03:46 Use device set Femoral Dx 16:03:47 ACIST Syringe (98207) opened to sterile field. 16:03:48 Bag Decanter (2002S) opened to sterile field. 16:03:51 Medline Cath Pack ([id number]) opened to sterile field. 16:03:52 ACIST Hand Control (26123) opened to sterile field. 16:03:52 ACIST Manifold (17359) opened to sterile field. 16:03:53 DIAGNOSTIC Multipack 5Fr catheter set (PR7721) opened to sterile field. 16:03:54 Tegaderm 4 x 4 (1626W) opened to sterile field. 16:03:56 SHEATH 5FR [place] (QJR181) opened to sterile field. 16:03:57 EMERALD Guide Wire (434-391) opened to sterile field. 16:04:06 Procedure started. 16:04:07 Full Disclosure recording started 16:05:16 Local anesthetic to left femerol artery with Lidocaine 2% by Durga Rueda MD.INITIAL ACCESS ONLY 16:05:27 A 5 Fr sheath was inserted into the Left Femoral artery 16:05:41 Baseline sample Acquired. 16:05:47 Baseline sample Acquired. 16:08:01 A MULTIPACK JL 4.0 5Fr catheter was advanced over the wire and used for Left Coronary Angiography. 16:08:05 LCA angiography performed. 16:13:18 Catheter exchanged over wire. 16:14:12 A DIAGNOSTIC AR2 MOD 5 Fr catheter ([id number]) was advanced over the wire and used for SVG Angiography. 16:14:59 RCA angiography performed. 16:15:08 SVG to RCA angiography performed. 16:15:14 SVG to RCA occluded. 16:16:43 SVG to Ramus angiography performed. 16:16:46 SVG to Circ angiography performed. 16:16:50 Catheter exchanged over wire. 16:17:18 A DIAGNOSTIC IM 5Fr catheter ([id number]) was advanced over the wire and used for SVG Angiography. 16:21:37 JAMES to LAD angiography performed. 16:23:04 Catheter exchanged over wire. 16:23:16 A MULTIPACK Pigtail 5 Fr catheter was advanced over the wire and used for LV Angiography. 16:24:22 LV angiography performed. 16:24:41 LV gram done using [place] 16:24:44 LV hemodynamics recorded. 16:24:49 Injector settings: Ml/sec: 10, Volume: 20, 16:24:55 EF : 50 % 16:27:06 Catheter exchanged over wire. 16:27:25 Sheath removed intact; hemostasis achieved with Exoseal to the Left Femoral artery. 16:27:32 EXOSEAL 5Fr (EX500) opened to sterile field. 16:27:36 Procedure ended.(Physican Out) 16:29:23 Contrast amount:Isovue 370 96ml. ::29 Fluoroscopy time 06.40 minutes. 16::40 Fluoroscopy dose: 289.22 mGy 16::40 Flurop Dose total: 289.22 16::45 Dose Area Product 2474 mGy/cm. 16:29:54 Maximum allowable dose exceeded? No. 16::55 Sharps counted by scrub and verified by R.N. 16:30:02 Post-op/insertion site Left Femoral artery dressed using a 4 x 4 and Tegaderm. 16:30:12 Post left femerol artery:stable 16:31:02 Post Procedure Pulses reassessed and unchanged 16:31:05 Post procedure: left dorsailis pedis pulse 2+ Normal; easily identifiable; not easily obliterated. 16:32:23 Post-procedure physical assessment completed. ASA score P 2 - A patient with mild systemic disease as per Durga Rueda MD. 16:32:26 Post procedure rhythm: unchanged. 16:32:28 Post procedure instruction explained to patient.Patient verbalizes understanding. 16:32:30 Procedure and supply charges have been captured, reviewed, submitted and are correct. 16:32:35 Procedure Complication : No complications 16:32:41 Vital chart was stopped 16:32:45 [facility] Findings: MVD- MD will discuss options w/ pt 16:32:47 Operative report dictated upon procedure completion. 16:32:47 See physician's report for complete and final results. 16:33:50 Report given to Pre/Post Procedure Room. 16:33:54 Patient transfered to Pre/Post Procedure Room with Stretcher. 16:33:55 Procedure ended. 16:33:55 Full Disclosure recording stopped 16:34:00 End room use (Document Last) 16:36:57 Procedure type changed to Cath procedure, Diagnostic procedure, LHC, C w/Coronaries w/Grafts 16:37:33 A DIAGNOSTIC JL 4.0 5Fr catheter ([id number]) was advanced over the wire and used for . 16:37:40 A DIAGNOSTIC Pigtail 5Fr catheter ([id number]) was advanced over the wire and used for . 16:39:14 EXOSEAL 5Fr (EX500) opened to sterile field. 16:39:37 MICROPUNCTURE 4FR Cook ([id number]) opened to sterile field. Device Usage Item Name Manufacture Quantity Catalog Hospital Part Current Minimal Lot# / Number Charge Number Stock Stock Serial# Code ACIST Syringe Acist 1 76313 966621 393506 124046 20 (27281) Medical Systems Inc Bag Decanter Microtek 1 363593 03724 206899 5 () Medical Inc. Medline Cath Medline 1 [id number] 487197 46199 907205 5 Pack ([id number]) ACIST Hand Acist 1 06409 486398 717335 141128 5 Control Medical (35935) Systems Inc ACIST Acist 1 38021 040077 502067 905154 5 Manifold Medical (29991) Systems Inc DIAGNOSTIC Cardinal 1 BE3782 386769 47772 418042 30 Multipack 5Fr Health catheter set (GD7504) Tegaderm 4 x 3M 1 1626W 382273 731233 486453 5 4 (1626W) SHEATH 5FR Terumo 1 XQX708 554411 070379 204021 5 [place] (PFM697) EMERALD Guide Cardinal 1 502-455 238948 006551 465475 5 Wire Health (502-455) MULTIPACK JL Cardinal 1 423095 5 4.0 5Fr Health catheter DIAGNOSTIC Cardinal 1 899206M 147719 167636 358891 20 AR2 MOD 5 Fr Health catheter (022562O) DIAGNOSTIC IM Cardinal 1 [id number] 651955 441489 131788 5 5Fr catheter Health (354448D) MULTIPACK Cardinal 1 270536 5 Pigtail 5 Fr Health catheter EXOSEAL 5Fr Cardinal 2 EX500 925376 116905 618402 10 (EX500) Health DIAGNOSTIC JL Cardinal 1 416059M 540826 426846 412133 10 4.0 5Fr Health catheter (263930Q) DIAGNOSTIC Cardinal 1 932786D 787075 580081 560866 5 Pigtail 5Fr Health catheter (066983Q) MICROPUNCTURE [employer] Medical 1 V47646 513555 325724 929635 5 4FR Cook ([id number]) Signature Audit Rogers Stage Time Signature Unsigned Intra-Procedure 10/16/2019 Yue Cao 4:39:14 PM RN Intra-Procedure 10/16/2019 Jerson Quiles RT(R) 4:39:37 PM Intra-Procedure 10/16/2019 Durga Rueda MD 4:40:10 PM [id number] [place] [address]
[2019-10-16] MEDS ORDERED: BAYER CHEWABLE81 MG PO (12:30)
[2019-10-16] MEDS ORDERED: METOPROLOL TART25 MG PO (12:31)
[2019-10-16] MEDS ORDERED: ZYLOPRIM100 MG PO (12:32)
[2019-10-16] MEDS ORDERED: NORVASC5 MG PO (12:32)
[2019-10-16] MEDS ORDERED: ISOSORBIDE MONO30 M1 PO (12:33)
[2019-10-16 12:42] VITALS: BP 108/59; Ht 165.1 cm; Wt 82.3 kg
[2019-10-16 12:56] LABS: BASOPHILS 0.1 % (0-2); EOSINOPHILS 2.6 % (0-7); HEMATOCRIT 34.2 % (42.0-54.0); HEMOGLOBIN 11.5 g/dL (13.5-17.5); IMMATURE GRANULOCYTES 0.2 % (0-5); LYMPHOCYTES 17.1 % (15-50); MCH 33.8 pg (26.0-34.0); MCHC 33.6 g/dL (31.0-37.0); MCV 100.6 fL (80.0-100.0); MEAN PLATELET VOLUME 8.8 fL (7.4-10.4); PLATELET COUNT 270 10x3/uL (130-400); WBC 9.3 10x3/uL (4.8-10.8)
[2019-10-16 13:11] LABS: ANION GAP 14.2 mmol/L (8-16); CARBON DIOXIDE 24.9 mmol/L (21.0-32.0); CHOL - HDL RATIO 5.8 ratio (2.3-4.9); CREATININE - SERUM 1.9 mg/dL (0.6-1.3); LDL-HDL RATIO 3.9 ratio (1.5-3.5); POTASSIUM - SERUM 5.1 mmol/L (3.5-5.1)
--- NOTE | 2019-10-16 16:49 | NUR ---
PT ARRIVED BY STRETCHER. PLACED ON MONITORS. ASSESSMENT COMPLETED. VSS. FAMILY AT BEDSIDE. CALL LIGHT WITHIN REACH.
[2019-10-16] MEDS ORDERED: RANEXA500 MG PO (17:04)
--- NOTE | 2019-10-16 17:05 | NUR ---
LEFT GROIN DRESSING C/D/I. NO S/S OF HEMATOMA NOTED. CALL LIGHT WITHIN REACH. VSS. FAMILY AT BEDSIDE. DR. CHISHOLM ROUNDED PRIOR TO PT ARRIVAL AND SPOKE WITH PT'S .
--- NOTE | 2019-10-16 17:18 | NUR ---
CALLED IN NEW PRESCRIPTION FOR PT PER PT'S REQUEST. CALLED INTO [facility]. SPOKE WITH CAMILA SELLERS PHARMACIST.
--- NOTE | 2019-10-16 17:50 | NUR ---
LEFT GROIN DRESSING C/D/I. NO S/S OF HEMATOMA NOTED. CALL LIGHT WITHIN REACH. HEAD OF BED INC TO 30 DEGREES. TOLERATED WELL. VSS. SET UP WITH SANDWICH TRAY AND DRINK.
--- NOTE | 2019-10-16 18:35 | NUR ---
PIV D/C'D WITH CATH TIP INTACT. PT TOLERATED WELL. LEFT GROIN DRESSING C/D/I. NO S/S OF HEMATOMA NOTED. DISCUSSED DISCHARGE INSTRUCTIONS WITH PT. HE VOICED UNDERSTANDING. PT INSTRUCTED TO GET UP AND DRESSED. NO ASSISTANCE NEEDED. CALL LIGHT WITHIN REACH.
--- NOTE | 2019-10-16 18:40 | NUR ---
PT VOIDED IN URINAL WITHOUT DIFFICULTY. VOIDED APPROX 350cc OF URINE NOTED. PT DRESSED. LEFT GROIN DRESSING C/D/I. NO S/S OF HEMATOMA NOTED. PT TAKEN OUT TO VEHICLE BY WHEELCHAIR. NO S/S OF DISTRESS NOTED. ALL BELONGINGS AND PAPERWORK IN HAND.
== END 2019-10-16 18:40 | disposition home or self-care (01) ==
LOC: D.CATH 12:03
PROVIDERS: ATTEND Internal Medicine Cardiovascular Disease
DX: I25.118 Atherosclerotic heart disease of native coronary artery with other forms of angina pectoris (principal); R06.00 Dyspnea, unspecified; I10 Essential (primary) hypertension; E78.5 Hyperlipidemia, unspecified; Z72.0 Tobacco use; R94.31 Abnormal electrocardiogram [ECG] [EKG]

== ENCOUNTER → 2019-11-07 11:16 | Outpatient (CLI) | payer MEDICARE, OTHER ==
[2019-10-16 12:42] VITALS: BMI 30.1
[~2019-11-07 11:16] MED LIST changes: +BAYER CHEWABLE81 MG PO; +ISOSORBIDE MONO30 M1 PO; +METOPROLOL TART25 MG PO; +RANEXA500 MG PO
== END | disposition home or self-care (01) ==
LOC: D.US 11:00
PROVIDERS: ATTEND Nurse Practitioner Adult Health
DX: M79.605 Pain in left leg (principal)

== ENCOUNTER → 2020-02-26 09:53 | Outpatient (CLI) | payer MEDICARE, OTHER ==
[2019-12-08 08:08] VITALS: BMI 30.1
== END | disposition home or self-care (01) ==
LOC: D.CT 02-19 09:30
PROVIDERS: ATTEND Internal Medicine Cardiovascular Disease
DX: I71.4 Abdominal aortic aneurysm, without rupture (principal)

== ENCOUNTER 2020-07-17 13:05 | Inpatient (IN) | payer MEDICARE, OTHER ==
[~2020-07-17] VITALS: Ht 165.1 cm; Wt 81.6 kg
[2020-07-17 13:40] LABS: BASOPHILS 0.1 % (0-2); EOSINOPHILS 0.4 % (0-7); HEMATOCRIT 33.5 % (42.0-54.0); HEMOGLOBIN 11.4 g/dL (13.5-17.5); IMMATURE GRANULOCYTES 0.3 % (0-5); LYMPHOCYTES 3.6 % (15-50); MCH 33.9 pg (26.0-34.0); MCV 99.7 fL (80.0-100.0); MEAN PLATELET VOLUME 8.7 fL (7.4-10.4); MONOCYTES 3.2 % (2-11); NEUTROPHILS 92.4 % (40-80); RBC 3.36 10x6/uL (4.20-6.10); RDW 14.7 % (11.5-14.5); WBC 6.9 10x3/uL (4.8-10.8)
[2020-07-17 13:42] LABS: PLATELET COUNT 205 10x3/uL (130-400)
[2020-07-17 13:49] LABS: CALC OSMOLALITY 277 mosm/kg (275-300); CALCIUM 9.2 mg/dL (8.5-10.1); CARBON DIOXIDE 26.4 mmol/L (21.0-32.0); CHLORIDE - SERUM 100 mmol/L (98-107); CREATININE - SERUM 2.3 mg/dL (0.6-1.3); GLUCOSE 89 mg/dL (74-106); POTASSIUM - SERUM 3.5 mmol/L (3.5-5.1); SODIUM 137 mmol/L (136-145); UREA NITROGEN 27 mg/dL (7-18); eGFR NON AFRICAN AMERICAN 30 mL/min (90-120)
[2020-07-17 13:50] LABS: APTT 37.8 SECONDS (22.8-39.4); INR 0.99 (0.85-1.17)
[2020-07-17 14:04] LABS: ALBUMIN 3.7 g/dL (3.4-5.0); ALKALINE PHOSPHATASE 346 U/L (30-120); ALT (SGPT) 460 U/L (10-68); BILIRUBIN - TOTAL 1.63 mg/dL (0.2-1.3); CKMB 2.8 U/L (0.0-3.6); CREATINE KINASE 167 UL (21-232); MAGNESIUM - SERUM 1.5 mg/dL (1.8-2.4); PROTEIN - SERUM 7.8 g/dL (6.4-8.2); TROPONIN-I 0.021 ng/mL (0.000-0.060)
--- NOTE | 2020-07-17 20:45 | NUR ---
PT MOVED TO ROOM E11 AT THIS TIME AND CARE ASSUMED FROM AUSTIN CESPEDES AND AUSTIN POLO
[2020-07-17 21:00] VITALS: BP 142/76
[2020-07-17 21:22] LABS: BILIRUBIN NEGATIVE (NEGATIVE); KETONE NEGATIVE (NEGATIVE); NITRITE NEGATIVE (NEGATIVE)
[2020-07-17 21:23] LABS: BACTERIA FEW HPF (NONE SEEN); WHITE CELLS - URINE 0-5 HPF (0-1)
--- NOTE | 2020-07-17 21:32 | NUR ---
PT LYING IN BED RESTING, CALL LIGHT WITHIN REACH, BED IN LOWEST POSITION, NO COMPLAINTS EXPRESSED AT THIS TIME. WILL CONTINUE TO MONITOR FOR CHANGES.
[2020-07-17 22:00] VITALS: BP 146/71
[2020-07-17 23:00] VITALS: BP 142/73
[2020-07-18] VITALS (15 sets, daily range): BP systolic 100–160; BP diastolic 56–98
--- NOTE | 2020-07-18 00:25 | NUR ---
NURSE AT BEDSIDE. PT REPORTS CHILLS AND NOT FEELING WELL. PT TEMP UP TO 101.5. JUHI AGUILERA APRN CONTACTED AND FURTHER ORDERS ENTERED INTO CHART.
--- NOTE | 2020-07-18 01:30 | NUR ---
PT NOT GIVEN CLONIDINE DUE TO BLOOD PRESSURE OF 105/58.
--- NOTE | 2020-07-18 03:42 | NUR ---
PT LYING SUPINE IN BED, BREATHS EVEN, NO ACUTE DISTRESS NOTED, WILL CONTINUE TO MONITOR.
--- NOTE | 2020-07-18 05:42 | NUR ---
PT RESTING IN BED, BREATHS EVEN, WILL CONTINUE TO MONITOR.
[2020-07-18 05:44] LABS: BASOPHILS 0.1 % (0-2); EOSINOPHILS 0 % (0-7); HEMATOCRIT 28.3 % (42.0-54.0); HEMOGLOBIN 9.5 g/dL (13.5-17.5); IMMATURE GRANULOCYTES 0.2 % (0-5); LYMPHOCYTES 2.6 % (15-50); MCH 33.1 pg (26.0-34.0); MCHC 33.6 g/dL (31.0-37.0); MCV 98.6 fL (80.0-100.0); MEAN PLATELET VOLUME 9.1 fL (7.4-10.4); MONOCYTES 4.7 % (2-11); NEUTROPHILS 92.4 % (40-80); PLATELET COUNT 180 10x3/uL (130-400); RBC 2.87 10x6/uL (4.20-6.10); RDW 14.9 % (11.5-14.5)
[2020-07-18 05:55] LABS: WBC 11.8 10x3/uL (4.8-10.8)
[2020-07-18 06:22] LABS: APTT 50.7 SECONDS (22.8-39.4); INR 1.32 (0.85-1.17); PROTIME 16.3 SECONDS (11.6-15.0)
[2020-07-18 06:25] LABS: ALBUMIN 2.8 g/dL (3.4-5.0); ANION GAP 13.3 mmol/L (8-16); BILIRUBIN - TOTAL 3.51 mg/dL (0.2-1.3); C-REACTIVE PROTEIN 10.5 mg/dL (0.0-0.9); CALCIUM 8.4 mg/dL (8.5-10.1); CARBON DIOXIDE 22.6 mmol/L (21.0-32.0); CHOL - HDL RATIO 3.4 ratio (2.3-4.9); CREATININE - SERUM 2.4 mg/dL (0.6-1.3); LDL-HDL RATIO 1.8 ratio (1.5-3.5); MAGNESIUM - SERUM 1.5 mg/dL (1.8-2.4); PHOSPHOROUS 1.7 mg/dL (2.5-4.9); POTASSIUM - SERUM 3.9 mmol/L (3.5-5.1); PROTEIN - SERUM 6.3 g/dL (6.4-8.2)
[2020-07-18 07:01] LABS: ERYTHROCYTE SEDIMENTATION RATE 68 mm/hr (0-20)
--- NOTE | 2020-07-18 07:08 | NUR ---
BEDSIDE REPORT RECEIVED, ASSUMED CARE OF PT AT THIS TIME. PT RESTING IN POSITION OF COMFORT AND SAFETY AT THIS TIME. PT DENIES HAVING ANY PAIN AT THIS TIME. PT'S V/S REMAIN STABLE AT THIS TIME AND PT DENIES ANY CURRENT NEEDS OR CONCERNS AT THIS TIME. PT INFORMED THAT HE IS TO REMAIN NPO AT THIS TIME D/T PHYSICIAN'S ORDERS. PT GIVEN LEMON GLYCERIN SWABS AND CALL LIGHT IN REACH.
--- NOTE | 2020-07-18 07:12 | NUR ---
REPORT GIVEN TO AUSTIN HALE
--- NOTE | 2020-07-18 08:05 | NUR ---
SPOKE WITH ADRIEN MENDES RE: MORNINGMEDS AND NPO STATUS. INSTR TO ONLY GIVE METOPROLOL/HOLD ALL OTHER MEDS
--- NOTE | 2020-07-18 08:25 | NUR ---
PT'S URINAL EMPTIED AT THIS TIME, PT HAD ABOUT 200ML OF DARK SUNITA COLORED URINE. PT REPORTS THAT HIS URINE HAS BEEN SLIGHTLY DARKER SINCE YESTERDAY.
--- NOTE | 2020-07-18 09:12 | NUR ---
PT BACK FROM MRI AT THIS TIME, AND BACK IN POSITION OF COMFORT AND SAFETY. WITH NO CURRENT NEEDS OR CONCERNS NOTED.
[2020-07-18 10:29] LABS: CKMB 2.2 U/L (0.0-3.6); CREATINE KINASE 131 UL (21-232)
[2020-07-18 10:34] LABS: TROPONIN-I 0.461 ng/mL (0.000-0.060)
--- NOTE | 2020-07-18 10:43 | NUR ---
BEN VILLASEÑOR APRN WITH CARDIOLOGY NOTIFIED OF PTS CURRENT TROP 0.461, AND THAT THIS IS AN INCREASE FROM YESTERDAYS TROP OF 0.021. PER AFSHIN CONTRERAS SHE IS TO NOTIFY DR ALMAGUER AND DR CARO OF THE PT'S CHANGE.
--- NOTE | 2020-07-18 12:07 | NUR ---
SPOKE TO DR THOMPSON'S NURSE REGARDING THE PT. INFORMED DR THOMPSON'S NURSE OF DR BRAUN'S CONCERNS AFTER SEEING THE PT AND THAT THE PT HAS HAD AN ELEVATION IN HIS TROPONIN WELL HAVING AN ABNORMAL MRI. DR THOMPSON'S NURSE INFORMED THAT DR BRAUN FEELS IF THE PT NEEDS TO BE SEEN AND HAVE SOMETHING DONE SOONER RATHER THAN LATER AND THAT HE WAS SCHEDULED FOR AN ERCP TODAY. PER DR THOMPSON'S NURSE HE IS IN A CASE AT THE MOMENT AND WILL HAVE TO COME LOOK AT THE PT AFTER HE COMPLETES HIS CASE.
--- NOTE | 2020-07-18 13:58 | NUR ---
PT'S URINE CONTINUES TO BE "TEA COLORED" WHICH IS A DIFFERENCE FROM THE PTS ORIGINAL URINE SAMPLE. NEW SAMPLE COLLECTED AND SENT TO THE LAB FOR A REPEAT UA.
--- NOTE | 2020-07-18 15:12 | NUR ---
PT TO ROOM FROM ER. SETTLED IN BED. CALL FROM SURGERY TO PREOP FOR ERCP. ANESTHESIA IN ROOM NOW.
--- NOTE | 2020-07-18 18:31 | NUR ---
PT BACK TO ROOM FROM ERCP. AWAKE AND ALERT. WANTING TO LOOK AT PICTURES FROM PROCEDURE. ON 4 LITERS OXYGEN.
[2020-07-19 00:32] VITALS: BP 126/74
[2020-07-19 04:30] VITALS: BP 131/72
[2020-07-19 06:41] LABS: BASOPHILS 0 % (0-2); EOSINOPHILS 0 % (0-7); HEMATOCRIT 29.9 % (42.0-54.0); HEMOGLOBIN 9.8 g/dL (13.5-17.5); IMMATURE GRANULOCYTES 0.3 % (0-5); LYMPHOCYTES 3.9 % (15-50); MCH 32.9 pg (26.0-34.0); MCHC 32.8 g/dL (31.0-37.0); MCV 100.3 fL (80.0-100.0); MEAN PLATELET VOLUME 8.9 fL (7.4-10.4); MONOCYTES 2.8 % (2-11); PLATELET COUNT 192 10x3/uL (130-400); RBC 2.98 10x6/uL (4.20-6.10); RDW 15.5 % (11.5-14.5); WBC 14.5 10x3/uL (4.8-10.8)
[2020-07-19 06:56] LABS: INR 1.25 (0.85-1.17); PROTIME 15.6 SECONDS (11.6-15.0)
[2020-07-19 07:20] LABS: ALBUMIN 2.9 g/dL (3.4-5.0); ANION GAP 14.9 mmol/L (8-16); BILIRUBIN - TOTAL 3.3 mg/dL (0.2-1.3); C-REACTIVE PROTEIN 32.6 mg/dL (0.0-0.9); CALCIUM 8.3 mg/dL (8.5-10.1); CARBON DIOXIDE 21.1 mmol/L (21.0-32.0); CREATININE - SERUM 2.6 mg/dL (0.6-1.3); PROTEIN - SERUM 6.8 g/dL (6.4-8.2)
[2020-07-19 08:38] VITALS: BP 131/75
[2020-07-19 13:00] VITALS: BP 123/68
[2020-07-19 14:07] VITALS: Ht 165.1 cm; Wt 81.6 kg
[2020-07-19 16:13] VITALS: BP 142/84
--- NOTE | 2020-07-19 20:30 | NUR ---
PT IN BED, AAO X 3, RESP EVEN AND UNLABORED, NO DISTRESS NOTED, CL IN REACH, SR UP X 2.
--- NOTE | 2020-07-20 02:45 | NUR ---
PT BLADDER SCANNED, 540 MLS NOTED AT THIS TIME, PT UNABLE TO VOID SINCE 1430 EARLIER DURING THE DAY, IN AND OUT CATH DONE, 725 MLS OF URINE OBTAINED AT THIS TIME. WILL CONTINUE TO MONITOR.
--- NOTE | 2020-07-20 03:54 | NUR ---
I have reviewed this patient and I concur with the Shift Assessment completed by the Licensed Practical Nurse today this shift.
[2020-07-20 04:00] VITALS: BP 137/81
[2020-07-20 07:00] VITALS: BP 131/89
--- NOTE | 2020-07-20 07:00 | NUR ---
RECEIVED REPORT. ASSUMED CARE OF PATIENT. CALL LIGHT WITHIN REACH. PATIENT LYING IN BED WITH EYES OPEN, RESP EVEN AND UNLABORED. BELLY TENDER S/P LAP LEONEL, ERCP. BEDSIDE SHIFT REPORT COMPLETE. WHITE BOARD UPDATED. ENCOURAGED PATIENT TO GET OOB AND AMBULATE ON UNIT TO HELP WITH PASSING GAS, PATIENT AGREE. NO DISTRESS.
[2020-07-20 09:35] LABS: BASOPHILS 0 % (0-2); EOSINOPHILS 0 % (0-7); HEMATOCRIT 24.1 % (42.0-54.0); HEMOGLOBIN 8.2 g/dL (13.5-17.5); IMMATURE GRANULOCYTES 0.3 % (0-5); MCH 33.9 pg (26.0-34.0); MCV 99.6 fL (80.0-100.0); MEAN PLATELET VOLUME 9.8 fL (7.4-10.4); MONOCYTES 5.1 % (2-11); NEUTROPHILS 85.6 % (40-80); PLATELET COUNT 174 10x3/uL (130-400); RBC 2.42 10x6/uL (4.20-6.10); RDW 15.6 % (11.5-14.5); WBC 11.6 10x3/uL (4.8-10.8)
[2020-07-20 09:37] LABS: ANION GAP 14.7 mmol/L (8-16); CARBON DIOXIDE 20.2 mmol/L (21.0-32.0); CREATININE - SERUM 3.1 mg/dL (0.6-1.3)
[2020-07-20 09:44] LABS: ALBUMIN 2.8 g/dL (3.4-5.0); PROTEIN - SERUM 6.8 g/dL (6.4-8.2)
[2020-07-20 09:52] LABS: POTASSIUM - SERUM 4.9 mmol/L (3.5-5.1)
--- NOTE | 2020-07-20 09:53 | NUR ---
medicated for pain at this time.
[2020-07-20 11:00] VITALS: BP 116/79
--- NOTE | 2020-07-20 11:49 | NUR ---
PATIENT REFUSED NICOTINE PATCH AT THIS TIME.
--- NOTE | 2020-07-20 15:41 | NUR ---
16 FR CUEVAS CATHETER PLACED VIA STERILE TECHNIQUE. 400CC CLEAR TEA COLORED URINE RETURNED IMMEDIATELY TO DRAINAGE BAG VIA GRAVITY. PATIENT TOLERATED CUEVAS CATHETER PLACEMENT WELL. STAT LOCK APPLIED TO LEFT THIGH AND CUEVAS IS SECURE. UA SUBMITTED TO LAB AT THIS TIME.
[2020-07-20 15:54] VITALS: BP 111/77
[2020-07-20 16:10] LABS: BILIRUBIN NEGATIVE (NEGATIVE); KETONE NEGATIVE (NEGATIVE); NITRITE NEGATIVE (NEGATIVE); UROBILINOGEN NORMAL mg/dL (< 2)
[2020-07-20 16:15] LABS: AMORPHOUS SEDIMENT >1+ LPF (NONE SEEN); BACTERIA MODERATE HPF (NONE SEEN); EPITHELIAL CELLS 0-5 /hpf (0-5); GRANULAR CAST 0-5 LPF (NONE SEEN)
--- NOTE | 2020-07-20 19:46 | NUR ---
RECEIVED REPORT, WILL ASSUME CARE OF PT, 02-4L, IV-20G.-R.HAND-SL, [id number], PT IS RESTING NO DISTRESS NOTICED AT THIS TIME, BED IS LOW, SRX2, CALL LIGHT IN REACH, WILL CONTINUE PLAN OF CARE
[2020-07-20 21:14] VITALS: BP 98/60
--- NOTE | 2020-07-20 21:23 | NUR ---
COMPLAINS OF CONSTIPATION, GAVE MILK OF MAG. ORDERED, TRIED TO ENCOURAGE PT TO WALK
[2020-07-21] VITALS (9 sets, daily range): BP systolic 40–124; BP diastolic 22–72
--- NOTE | 2020-07-21 03:37 | NUR ---
I have reviewed this patient and I concur with the Shift Assessment completed by the Licensed Practical Nurse today this shift.
--- NOTE | 2020-07-21 07:00 | NUR ---
RECEIVED REPORT. ASSUMED CARE OF PATIENT. PATIENT RESTING IN BED WITH EYES CLOSED, RESP EVEN AND UNLABORED. CALL LIGHT WITHIN REACH. WHITE BOARD UPDATED, BEDSIDE SHIFT REPORT COMPLETE. OFF GOING NURSE STATES PATIENT HAS BECOME VERY DEPENDENT ON STAFF FOR CARES. REPORTED THAT PATIENT WAS UP IN ROOM AMBULATING REQUESTED BY PREVIOUS NURSE.
--- NOTE | 2020-07-21 08:49 | NUR ---
TEXT SENT TO [facility] REQUESTING ENEMA PATIENT WITH NO BM X 7 DAYS, SP LAP LEONEL AND DEPENDENT ON LAXATIVES AT HOME. WAITING FOR RESPONSE. PATIENT HAS WORKED HIMSELF UP INTO AN ANXIETY ATTACK. RT HAS CHECKED PATIENT, 02 SAT 99%, THIS ELECTRICAL ACCESSORIES ASSEMBLER ABLE TO STAY AT BEDSIDE WITH PATIENT AND TALK HIM DOWN FROM ANXIETY AT THIS TIME. PATIENT IS MORE CALM. NEW ORDERS RECEIVED.
--- NOTE | 2020-07-21 08:57 | NUR ---
THIS CAT SKINNER OBTAINED SUPPLIES FROM SUPPLY CLOSET FOR ENEMA AND WHEN EXISTING SUPPLY ROOM, SQL APPLICATION DEVELOPER NOTIFIED THIS CAT SKINNER PATIENT PULSE IS LOW. THIS CAT SKINNER LOOKED AT MONITOR AND PATIENT WAS SB WITH RATE OF 36. THIS CAT SKINNER PROCEEDED STRIGHT TO PATIENT ROOM, PATIENT NOT RESPONDING TO VERBAL COMMANDS AND AGONAL BREATHS NOTED. CODE GUNNAR CALLED.
--- NOTE | 2020-07-21 09:29 | NUR ---
PATIENT TRANSFERRED TO ICU AT THIS TIME.
--- NOTE | 2020-07-21 09:30 | NUR ---
PATIENT RECEIVED FROM MED 2 PER BED POST CODE BLUE. DR. DONNA DON HERE. DR. THOMPSON ATTEMPTING GARRETT RIGHT GROIN UNABLE. ETT SECURE. PATIENT SOME MOVEMENT OF EXTREMITITES. RESTRAINTS APPLIED. IV STARTED 18 GAUGE LEFT HAND. NS INFUSING UNIT OF BLOOD OBTAIN AND STARTED. PULSE WITH DOPPLER. EKG WIDE QRS.
--- NOTE | 2020-07-21 09:42 | NUR ---
CALCIUM CHLORIDE AND NORCURON 10 MG IV ORDERED PER BREVING.
[2020-07-21 09:50] LABS: MCH 33.3 pg (26.0-34.0); MCHC 32.9 g/dL (31.0-37.0); MCV 101.4 fL (80.0-100.0); MEAN PLATELET VOLUME 9.7 fL (7.4-10.4); RDW 15.4 % (11.5-14.5); WBC 10.2 10x3/uL (4.8-10.8)
--- NOTE | 2020-07-21 09:54 | NUR ---
CALLED AND SPOKE TO PATIENT SPOUSE, VIKTOR RICHMOND, AND NOTIFIED OF CODE BLUE AND TRANSFER TO ICU THIS AM.
--- NOTE | 2020-07-21 09:58 | NUR ---
NO PALABLE PULSE, CODE GUNNAR CALLED AND CPR STARTED. SEE CODE BLUE RECORD
[2020-07-21 10:00] LABS: HEMATOCRIT 14.3 % (42.0-54.0); HEMOGLOBIN 4.7 g/dL (13.5-17.5); PLATELET COUNT 129 10x3/uL (130-400); RBC 1.41 10x6/uL (4.20-6.10)
--- NOTE | 2020-07-21 10:00 | NUR ---
PALABLE PULSE. ABD OPEN AT BEDSIDE PER DR. THOMPSON AND OR TEAM. PATIENT TO OR PER BED.
[2020-07-21 10:21] LABS: LYMPHOCYTES 40 % (15-50); MONOCYTES 4 % (2-11); NEUTROPHILS 46 % (40-80); PLATELET ESTIMATE NORMAL
--- NOTE | 2020-07-21 10:26 | NUR ---
NOTIFIED OF PATIENT HAVING EMERGENCY SURGERY AND CARDIAC ARREST X 2.
[2020-07-21 10:27] LABS: ALKALINE PHOSPHATASE 155 U/L (30-120); BILIRUBIN - TOTAL 0.83 mg/dL (0.2-1.3); CALC OSMOLALITY 285 mosm/kg (275-300); CARBON DIOXIDE 15.1 mmol/L (21.0-32.0); CHLORIDE - SERUM 97 mmol/L (98-107); CREATINE KINASE 436 UL (21-232); CREATININE - SERUM 3.5 mg/dL (0.6-1.3); GLUCOSE 247 mg/dL (74-106); POTASSIUM - SERUM 4.5 mmol/L (3.5-5.1); SODIUM 132 mmol/L (136-145); UREA NITROGEN 49 mg/dL (7-18); eGFR NON AFRICAN AMERICAN 19 mL/min (90-120)
[2020-07-21 10:28] LABS: ALBUMIN 1.8 g/dL (3.4-5.0); ALT (SGPT) 95 U/L (10-68); CALCIUM 6.7 mg/dL (8.5-10.1); PROTEIN - SERUM 4.8 g/dL (6.4-8.2)
[2020-07-21 10:29] LABS: CKMB 12.5 U/L (0.0-3.6); TROPONIN-I 0.461 ng/mL (0.000-0.060)
--- NOTE | 2020-07-21 11:00 | NUR ---
PATIENT RETURNED TO ROOM ABD OPEN WITH INTESTINES OUT. ETT SECURE BAGGED PER RESP THERAPY. RIGHT FEMEROL CENTRAL LINE IN PLACE. DOBUTAMINE AT 10 MCG/KG/MIN. VASOPRESSIN GTT AT 100 ML HOUR. NS 1000CC WIDE OPEN. PATIENT FACE AND NECK ARE BLUE. FAMILY CALLED INSTRUCTED TO COME TO HOSPITAL AND TALK WITH MD. 2 AMPS OF BICARB IV ORDERED BY DR. THOMPSON AND GIVEN. OR TEAM AT THE BEDSIDE. CUEVAS CATH PATENT WITH SUNITA URINE IN CONTAINER. MONITOR IRREGULAR RHYTHM WITH WIDE QRS. PULSE WITH PALABLE.
--- NOTE | 2020-07-21 13:47 | NUR ---
BODY RELEASED TO [facility].
--- NOTE | 2020-07-21 15:16 | NUR ---
PATIENT OPENED AT BEDSIDE IN ICU ROOM 1 WITH OR STAFF AT SIDE. ROLLED INTO OR 5 DOING COMPRESSIONS, DR. THOMPSON ATTEMPTED GARRETT IN RIGHT GROIN. COMPRESSIONS STOPPED, BLEEDING STOPPED. MULTIPLE UNITS OF BLOOD AND FFP GIVEN. DR. OSBORN ASSISTED ANESTHESIA WITH GIVING DRUGS. PT BECAME UNSTABLE AGAIN, COMPRESSIONS RESUMED FOR 10 MINS. TRANSPORTED BACK TO ICU.
--- NOTE | 2020-07-22 14:50 | OP ---
PATIENT NAME: ADELAIDE RICHMOND MEDICAL RECORD: [id number] :53 LOCATION:.[facility] D.2301 ADMISSION DATE:07/19/20 SURGEON: ESAU THOMPSON MD DATE OF OPERATION: 07/20/2020 PREOPERATIVE DIAGNOSES: 1. Status post cardiopulmonary arrest. 2. Acute blood loss anemia with shock. POSTOPERATIVE DIAGNOSES: 1. Status post cardiopulmonary arrest. 2. Acute blood loss anemia with shock. 3. Additional cardiac arrests in the intensive care unit and in the operating room. 4. Hemoperitoneum. PROCEDURES: 1. Emergency exploratory laparotomy. 2. Packing for control of hemorrhage. 3. Aortic compression. 4. Placement of a right groin Trialysis catheter to be used as a central line. 5. Failed arterial line placement. SURGEON: Esau Thompson MD SUGAR MIXER: None. BLOOD LOSS: Please see the anesthesia sheet. Due to the emergent nature of this procedure, consent could not be obtained from the family. I was asked to see this patient emergently. The patient had previously undergone a laparoscopic cholecystectomy. He has also undergone an ERCP. He sustained a cardiac arrest on the floor and was successfully resuscitated. He was moved to the intensive care unit. It was noted that he had a sharp decline in his hematocrit since yesterday. I do not have a reason for why he would have had this amount of significant blood loss. I began inserting a Trialysis catheter in the right groin for large volume infusion of blood products. The right groin was sterilely prepped and draped. I percutaneously accessed the right common femoral vein in an antegrade fashion. Guidewire was passed easily. A small skin ronen was accomplished. A vessel dilator was used to dilate a subcutaneous tract. A 20 cm Trialysis catheter was inserted to the hub. We began using it immediately for volume infusion of blood products and medications. The line was sutured in place times 3. During the resuscitative efforts, I attempted to place an arterial line as well. I utilized an ultrasound to some degree and this was brought onto the sterile field in a sterile bag. Even utilizing this, I was really unable to determine whether I was in the artery or not. This likely was due to the patient's profound hypotension. During the resuscitative efforts in the ICU, he had at least 2 episodes where he developed a cardiopulmonary arrest. ACLS was used as a guide in order to successfully resuscitate the patient. I was fearful that there was ongoing blood loss, which was leading to the cardiac demand ischemia. The patient has a history of coronary artery disease. I thought that OPERATIVE REPORT [id number] ADELAIDE RICHMOND it was imperative that we proceed with packing off the bleeding area. The OR staff was present. I told them to obtain a laparotomy tray. At the bedside, we sterilely prepped and draped the abdomen. A right subcostal incision was accomplished. I carried it down through skin and skin and subcutaneous tissue as well as the muscles and fascia. The peritoneal cavity was entered sharply. There was no injury to the bowels or any intraperitoneal structures during this subcostal laparotomy. I quickly evacuated the blood from the gallbladder fossa as well as inferior to the liver. This was mainly clotted blood, but there was unclotted blood as well. Once I had done this, I then packed off the gallbladder fossa with laparotomy pads. I held pressure here. During this period of time, chest compressions had to be resumed. I made a continuation of the laparotomy incision, so that it was a bilateral subcostal incision. I opened up the left side of the abdomen with a scalpel as well as scissors. During this portion of the laparotomy, there was no damage to the intra-abdominal tissues. I then compressed the aorta, inferior to the transverse colonic mesentery. We were able to determine that there was pulsatility to the aorta and therefore, chest compressions were stopped. I then made the decision to proceed to the operating room. The patient was then conveyed to the operating room emergently. He was placed on the operating table. As the bleeding appeared to have stopped with packing, I wanted to give the anesthesia staff time to infuse blood products, which they did with a power infusion device through the Trialysis catheter. I again attempted arterial line placement at the right common femoral artery and I really could not tell whether I was in the artery or not due to the patient's low blood pressure. I note that I could not get the guidewire to thread, so it may be that the vessel was collapsed. I then attempted arterial line placement in an antegrade fashion under ultrasonographic guidance and here again, this was not fruitful. However, we could determine whether the patient had a pulse through the aortic compression, which continued and was performed to divert pulsatile blood flow to the important organs such as the brain, heart, and lungs. Additional blood products were brought to the operating room emergently. The patient suffered another cardiac arrest. Here again resuscitative efforts were successful. The patient continued to be hemodynamically very unstable. It appeared that the packing had done the job of stopping of the bleeding. It also appeared that the patient was declining and that this resuscitative effort was going to fail overall. We then elected convey the patient back to the intensive care unit because we felt that further resuscitative efforts were going to be futile. It did appear that the packing had been successful in stopping the bleeding at the gallbladder fossa. The patient was conveyed back to the intensive care unit. Here again I wanted to see how our vasoactive agents were affecting the patient's blood pressure. I attempted arterial line placement again at the right groin after sterilely prepping it and this was done under ultrasonographic guidance. Even under ultrasonographic guidance, I still could not place an arterial line, so this was abandoned. The patient suffered a final cardiac arrest. It is my feeling and the feeling of the anesthesia staff that the patient essentially had a failed heart and that this was not going to improve with any therapy that we could provide. Essentially, the inotropic agents and the vasoactive agents were only keeping his heart pumping for short periods of time before having to redose. The patient sustained one final cardiac arrest. I recommended that we cease resuscitative efforts and pronounce the patient . All the people that were OPERATIVE REPORT [id number] ADELAIDE RICHMOND in the room were in agreement. TRANSINT:[id number] Voice Confirmation ID: [id number] DOCUMENT ID: [id number] ESAU THOMPSON MD at 1450 CC: [id number] DICTATION DATE: 07/21/201914 AMERICAN HISTORY TEACHER: 07/22/20 0343 DIS IN 07/21/20 [facility] [address] [id number]
--- NOTE | 2020-07-23 09:49 | OP ---
PATIENT NAME: ADELAIDE RICHMOND MEDICAL RECORD: [id number] :53 LOCATION:.[facility] D.2301 ADMISSION DATE:07/19/20 SURGEON: ALAN CLAIRE MD DATE OF OPERATION: 07/19/2020 PREOPERATIVE DIAGNOSIS: 1. Gallstones with choledocholithiasis status post ERCP. 2. Hypertension. 3. Coronary artery disease. 4. Congestive heart failure, undifferentiated. 5. Chronic kidney disease. POSTOPERATIVE DIAGNOSES: 1. Acute cholecystitis. 2. Hypertension. 3. Coronary artery disease. 4. Congestive heart failure, undifferentiated. 5. Chronic kidney disease. PROCEDURE: Laparoscopic cholecystectomy. SURGEON: Alan Claire MD REPORT OF PROCEDURE: The patient's abdomen was prepped and draped in sterile fashion. A cutdown was made on the superior aspect of the umbilicus, 0 Vicryls were placed in the fascia bilaterally and the fascia was incised with 15-blade. I then bluntly entered the peritoneal cavity and placed a 12-mm Verónica port. Under direct visualization, a 5 mm trocar was placed in the epigastrium and 2 more 5-mm trocars were placed in the right subcostal region. The patient had a decent amount of adhesions present in the right upper quadrant and these were all taken down with blunt dissection. The gallbladder was then grasped and elevated and there was noted to be some inflammatory changes and the gallbladder was quite distended, incidental perforation of the gallbladder was perform while just trying to grasp it. We eventually were able to dissect the fatty tissue off of the inferior aspect of the gallbladder and eventually dissect out the cystic artery and cystic duct. These structures were clipped proximally and distally and ligated in standard fashion. The gallbladder was taken off the liver bed using electrocautery and placed into an Endo Catch bag. Any bleeding from the liver bed was then treated with electrocautery. We irrigated out the right upper quadrant and look for any signs of any bleeding or bile leakage. At this point, the ports and insufflation were then removed and the gallbladder was taken out through the umbilicus. The umbilical fascia was closed with interrupted 0 Vicryls times 4. The wounds were then irrigated out with normal saline, infused with 10 mL of 0.25% Marcaine with epinephrine. The skin incisions were all closed with subcutaneous 5-0 Monocryl and dressed appropriately. COMPLICATIONS: None. CONDITION: Stable. ANESTHESIA: General endotracheal and local. BLOOD LOSS: 50 mL. OPERATIVE REPORT [id number] KIRANALONADELAIDECHEKO COSTA TRANSINT:[id number] Voice Confirmation ID: [id number] DOCUMENT ID: [id number] ALAN CLAIRE MD at 0949 CC: [id number] DICTATION DATE: 07/19/20 1526 RETRIEVAL SPECIALIST: 07/20/20 0237 DIS IN 07/21/20 [place] [id number] [place] [id number]
[2020-07-23 11:10] LABS: HEPATITIS C ANTIBODY 0.1 S/CO RAT (0.0-0.9)
[2020-07-25 03:08] LABS: HCVGENO - HEP C QUANT HCV Not Detected IU/mL (())
--- NOTE | 2020-07-25 14:24 | NUR ---
Per CMS Protocol, restraint report logged into data base.
== END 2020-07-21 15:11 | DRG 417 ==
LOC: D.ER 13:05 → D.EDHOLD 17:23 → D.M2 17:23 → D.EDHOLD 17:23 → OBSVTIME 17:23 → D.M2 07-18 14:36 → D.ICU 07-21 10:09
PROVIDERS: Family Medicine; Internal Medicine Cardiovascular Disease; Surgery; ADMIT Family Medicine; ATTEND Family Medicine
PROC: 0FC98ZZ Extirpation of Matter from Common Bile Duct, Via Natural or Artificial Opening Endoscopic (ICD-10-PCS; 2020-07-18)
PROC: 0FT44ZZ Resection of Gallbladder, Percutaneous Endoscopic Approach (ICD-10-PCS; principal; 2020-07-19 12:30)
PROC: 0W3G0ZZ Control Bleeding in Peritoneal Cavity, Open Approach (ICD-10-PCS; 2020-07-20)
PROC: 06HM33Z Insertion of Infusion Device into Right Femoral Vein, Percutaneous Approach (ICD-10-PCS; 2020-07-20)
PROC: 0BH17EZ Insertion of Endotracheal Airway into Trachea, Via Natural or Artificial Opening (ICD-10-PCS; 2020-07-21)
PROC: 5A1935Z Respiratory Ventilation, Less than 24 Consecutive Hours (ICD-10-PCS; 2020-07-21)
PROC: 5A12012 Performance of Cardiac Output, Single, Manual (ICD-10-PCS; 2020-07-21)
DX: K80.43 Calculus of bile duct with acute cholecystitis with obstruction (principal); K66.1 Hemoperitoneum; I21.9 Acute myocardial infarction, unspecified; I13.0 Hypertensive heart and chronic kidney disease with heart failure and stage 1 through stage 4 chronic kidney disease, or unspecified chronic kidney disease; D62 Acute posthemorrhagic anemia; J98.11 Atelectasis; K91.840 Postprocedural hemorrhage of a digestive system organ or structure following a digestive system procedure; I25.10 Atherosclerotic heart disease of native coronary artery without angina pectoris; I50.9 Heart failure, unspecified; J44.9 Chronic obstructive pulmonary disease, unspecified; K21.9 Gastro-esophageal reflux disease without esophagitis; N18.2 Chronic kidney disease, stage 2 (mild); R57.8 Other shock; I46.9 Cardiac arrest, cause unspecified; Y83.9 Surgical procedure, unspecified as the cause of abnormal reaction of the patient, or of later complication, without mention of misadventure at the time of the procedure